=== PATIENT | male | born 1975 | race American Indian/Alaskan Native ===

== ENCOUNTER 2019-02-23 12:14 | Emergency (ER) | payer MEDICARE ==
--- NOTE | 2019-02-23 12:51 | Emergency Department Report ---
ED Altered Mental Status HPI - General Chief Complaint: Altered Mental Status Stated Complaint: AMS Time Seen by Provider: 02/23/19 12:42 Source: patient, EMS Mode of arrival: Stretcher Limitations: Altered Mental Status, Other - History of Present Illness Initial Comments: Patient is 43 years old male with history of end-stage renal disease on hemodial ysis. Patient brought to the emergency room via EMS for evaluation of altered mental status that happened during his dialysis session this morning. Dialysis centers stated that patient was difficult to arouse but by the time patient arrived to the ER patient is alert, oriented 3 in no acute distress moving all his extremities with a negative stroke screening exam. Patient closely over 120. MD Complaint: altered mental status, decreased responsiveness -: This morning Severity: moderate - Related Data Home Medications Medication Instructions Recorded Confirmed Last Taken Aspirin [Aspir-Low] 81 mg PO DAILY 01/29/19 01/29/19 01/27/19 AtorvaSTATin [Lipitor] 20 mg PO QHS 01/29/19 01/29/19 01/28/19 Carvedilol 25 mg PO BID 01/29/19 01/29/19 01/28/19 Clopidogrel Bisulfate [Plavix] 75 mg PO DAILY 01/29/19 01/29/19 01/27/19 Ergocalciferol [Vitamin D2] 1 cap PO QWEEK 01/29/19 01/29/19 1 Week Ago ~01/22/19 Famotidine [Pepcid] 10 mg PO BID 01/29/19 01/29/19 01/28/19 Gabapentin [Neurontin] 300 mg PO QHS 01/29/19 01/29/19 01/28/19 Insulin Glargine,Hum.rec.anlog 20 units SQ QHS 01/29/19 01/29/19 01/28/19 [Lantus] NIFEdipine XL [Procardia Xl] 90 mg PO DAILY 01/29/19 01/29/19 01/28/19 Sevelamer Carbonate [Renvela] 3 tab PO TIDAC 01/29/19 01/29/19 01/28/19 Allergies Allergy/AdvReac Type Severity Reaction Status Date / Time No Known Allergies Allergy Unverified 01/29/19 06:33 ED Review of Systems ROS: Stated complaint: AMS Other details as noted in HPI Comment: All other systems reviewed and negative Constitutional: denies: chills, fever Respiratory: denies: cough, shortness of breath Cardiovascular: denies: chest pain, palpitations Gastrointestinal: denies: abdominal pain, nausea, vomiting, diarrhea, constipation, hematemesis, melena, hematochezia Musculoskeletal: denies: back pain Neurological: denies: headache, weakness, numbness, paresthesias, confusion, abnormal gait ED Past Medical Hx - Past Medical History Previous Medical History?: Yes Hx Hypertension: Yes Hx Heart Attack/AMI: No Hx Diabetes: Yes Hx HIV: No Additional medical history: Legally blind - Surgical History Past Surgical History?: Yes Hx Cholecystectomy: Yes - Social History Smoking Status: Never Smoker - Medications Home Medications: Home Medications Medication Instructions Recorded Confirmed Last Taken Type Aspirin [Aspir-Low] 81 mg PO DAILY 01/29/19 01/29/19 01/27/19 History AtorvaSTATin [Lipitor] 20 mg PO QHS 01/29/19 01/29/19 01/28/19 History Carvedilol 25 mg PO BID 01/29/19 01/29/19 01/28/19 History Clopidogrel Bisulfate [Plavix] 75 mg PO DAILY 01/29/19 01/29/19 01/27/19 History Ergocalciferol [Vitamin D2] 1 cap PO QWEEK 01/29/19 01/29/19 1 Week Ago History ~01/22/19 Famotidine [Pepcid] 10 mg PO BID 01/29/19 01/29/19 01/28/19 History Gabapentin [Neurontin] 300 mg PO QHS 01/29/19 01/29/19 01/28/19 History Insulin Glargine,Hum.rec.anlog 20 units SQ QHS 01/29/19 01/29/19 01/28/19 History [Lantus] NIFEdipine XL [Procardia Xl] 90 mg PO DAILY 01/29/19 01/29/19 01/28/19 History Sevelamer Carbonate [Renvela] 3 tab PO TIDAC 01/29/19 01/29/19 01/28/19 History ED Physical Exam - General Limitations: Altered Mental Status, Other General appearance: alert, in no apparent distress - Head Head exam: Present: atraumatic, normocephalic, normal inspection - Eye Eye exam: Present: normal appearance, PERRL - ENT ENT exam: Present: normal exam, normal orophraynx, mucous membranes moist - Neck Neck exam: Present: normal inspection, full ROM. Absent: tenderness, meningismus, lymphadenopathy, thyromegaly - Respiratory Respiratory exam: Present: normal lung sounds bilaterally - Cardiovascular Cardiovascular Exam: Present: regular rate, normal rhythm, normal heart sounds - GI/Abdominal GI/Abdominal exam: Present: soft, normal bowel sounds. Absent: distended, te nderness, guarding, rebound, rigid - Extremities Exam Extremities exam: Present: normal inspection, full ROM, normal capillary refill - Back Exam Back exam: Present: normal inspection, full ROM. Absent: CVA tenderness (R), CVA tenderness (L) - Neurological Exam Neurological exam: Present: alert, oriented X3, CN II-XII intact, normal gait - Psychiatric Psychiatric exam: Present: normal mood - Skin Skin exam: Present: warm, intact, normal color - Assessment Assessment Interval: Baseline - Level of Consciousness 1a. Level of Consciousness: alert/keenly responsive - LOC Questions 1b. LOC Questions: answers both correctly - LOC Command 1c. LOC Commands: performs tasks correctly - Best Gaze 2. Best Gaze: normal - Visual 3. Visual: no visual loss - Facial Palsy 4. Facial Palsy: normal symmetrical movement - Motor Arm 5a. Motor Arm Left: no drift 5b. Motor Arm Right: no drift - Motor Leg 6a. Motor Leg Left: no drift 6b. Motor Leg Right: no drift - Limb Ataxia 7. Limb Ataxia: absent - Sensory 8. Sensory: normal - Best Language 9. Best Language: no aphasia - Dysarthria 10. Dysarthria: normal - Extinction and Inattention 11. Extinction/Inattention: no abnormality - Scoring Total Score: 0 Stroke Severity: No Stroke Symptoms ED Course Vital Signs 02/23/19 02/23/19 02/23/19 12:27 13:28 13:30 Temperature 97.7 F Pulse Rate 63 Respiratory 18 Rate Blood Pressure 143/80 162/84 O2 Sat by Pulse 100 97 97 Oximetry 02/23/19 02/23/19 14:00 14:30 Temperature Pulse Rate Respiratory Rate Blood Pressure 164/93 160/85 O2 Sat by Pulse 99 97 Oximetry - Lab Data Result diagrams: 02/23/19 12:54 02/23/19 12:54 Lab Results 02/23/19 02/23/19 02/23/19 Range/Units 12:54 12:54 12:54 WBC 10.3 (4.5-11.0) K/mm3 RBC 4.05 (3.65-5.03) M/mm3 Hgb 12.7 (11.8-15.2) gm/dl Hct 38.4 (35.5-45.6) % MCV 95 H (84-94) fl MCH 31 (28-32) pg MCHC 33 (32-34) % RDW 16.5 H (13.2-15.2) % Plt Count 319 (140-440) K/mm3 Lymph % (Auto) 24.2 (13.4-35.0) % [place] % (Auto) 6.9 (0.0-7.3) % Eos % (Auto) 3.6 (0.0-4.3) % Baso % (Auto) 0.7 (0.0-1.8) % Lymph # 2.5 (1.2-5.4) K/mm3 [place] # 0.7 (0.0-0.8) K/mm3 Eos # 0.4 (0.0-0.4) K/mm3 Baso # 0.1 (0.0-0.1) K/mm3 Seg Neutrophils % 64.6 (40.0-70.0) % Seg Neutrophils # 6.7 (1.8-7.7) K/mm3 Sodium 137 (137-145) mmol/L Potassium 4.9 (3.6-5.0) mmol/L Chloride 95.8 L (98-107) mmol/L Carbon Dioxide 30 (22-30) mmol/L Anion Gap 16 mmol/L BUN 58 H (9-20) mg/dL Creatinine 6.4 H (0.8-1.5) mg/dL Estimated GFR 11 ml/min BUN/Creatinine Ratio 9 % Glucose 165 H (75-100) mg/dL Calcium 9.4 (8.4-10.2) mg/dL Total Bilirubin 0.30 (0.1-1.2) mg/dL Direct Bilirubin < 0.2 (0-0.2) mg/dL Indirect Bilirubin 0.1 mg/dL AST 19 (5-40) units/L ALT 19 (7-56) units/L Alkaline Phosphatase 208 H (35-129) units/L Ammonia < 10.0 L (25-60) umol/L Total Protein 8.2 (6.3-8.2) g/dL Albumin 3.0 L (3.9-5) g/dL Albumin/Globulin Ratio 0.6 % - Radiology Data Radiology results: report reviewed Chest x-ray is unremarkable. CT brain is negative for acute finding. - Medical Decision Making Patient is 43 years old male with history of end-stage renal disease on hemodialysis. Patient brought to the emergency room via EMS for evaluation of altered mental status that happened during his dialysis session this morning. Dialysis centers stated that patient was difficult to arouse but by the time patient arrived to the ER patient is alert, oriented 3 in no acute distress moving all his extremities with a negative stroke screening exam. Patient closely over 120. Patient remained stable in the ER. Patient is alert, oriented 3 in no acute distress chatting with his family on the phone. Labs reveal a days and unremarkable. Patient discharged home in a stable clinical condition. Critical care attestation.: If time is entered above; I have spent that time in minutes in the direct care of this critically ill patient, excluding procedure time. ED Disposition Clinical Impression: Altered mental status, End-stage renal disease on hemodialysis Disposition: DC- TO HOME OR SELFCARE Is pt being admited?: No Condition: Stable Instructions: Altered Mental Status (ED) Referrals: IGLESIA MALAVE MD [Primary Care Provider] - 3-5 Days
[2019-02-23 13:08] LABS: Basophils # (Auto) 0.1 K/mm3 (0.0-0.1); Basophils % (Auto) 0.7 % (0.0-1.8); Eosinophils # (Auto) 0.4 K/mm3 (0.0-0.4); Eosinophils % (Auto) 3.6 % (0.0-4.3); Hematocrit 38.4 % (35.5-45.6); Hemoglobin 12.7 gm/dl (11.8-15.2); Lymphocytes # (Auto) 2.5 K/mm3 (1.2-5.4); Lymphocytes % (Auto) 24.2 % (13.4-35.0); Mean Corpuscular HGB Conc 33 % (32-34); Mean Corpuscular Volume 95 fl (84-94); Monocytes # (Auto) 0.7 K/mm3 (0.0-0.8); Monocytes % (Auto) 6.9 % (0.0-7.3); Platelet Count 319 K/mm3 (140-440); Red Blood Count 4.05 M/mm3 (3.65-5.03); Red Cell Distribution Width 16.5 % (13.2-15.2)
[2019-02-23 13:29] LABS: Alanine Aminotransferase 19 units/L (7-56); BUN/Creatinine Ratio 9; Blood Urea Nitrogen 58 mg/dL (9-20); Calcium 9.4 mg/dL (8.4-10.2); Hemolysis Index 14
[2019-02-23 13:34] LABS: Bilirubin,Direct < 0.2 mg/dL (0-0.2)
--- NOTE | 2019-02-23 13:34 | XRay Report ---
AP CHEST : 02/23/19 12:55 CLINICAL: Altered mental status. COMPARISON:None FINDINGS: Mild cardiomegaly with a left ventricular contour.Normal pulmonary vasculature. The lungs are normally expanded and clear. The bones and soft tissues are unremarkable.No tubes or lines. IMPRESSION: Mild cardiomegaly but no CHF.
--- NOTE | 2019-02-23 14:23 | Cat Scan Report ---
PROCEDURE: CT HEAD/BRAIN WO CON TECHNIQUE: CT examination of the head without IV contrast HISTORY: AMS COMPARISONS: 01/12/2019 FINDINGS: Nonspecific density in both ocular globes, symmetric bilaterally and unchanged from comparison. Corre late clinically. Cerebrovascular atherosclerotic calcification is present in the skull base arteries. No acute air-fluid level visualized in the included air-filled sinuses. Bone windows demonstrate no acute fracture. The brain is without mass, mass effect, hemorrhage, or acute infarct. There is no extra-axial intracranial bleed, brain bleed, or midline shift. The ventricles and sulci are age-appropriate. IMPRESSION: No acute CVA, intracranial bleed, or brain mass Nonspecific diffuse homogeneous density in both ocular globes is bilaterally symmetric and unchanged from comparison exam This document is electronically signed by Adan Short MD., Feb 23 2019 02:21:17 PM ET
[2019-02-23 18:57] VITALS: BP 177/89
== END 2019-02-23 18:59 | disposition home or self-care (01) ==
LOC: ED 12:14
DX: R41.82 Altered mental status, unspecified (principal); I12.0 Hypertensive chronic kidney disease with stage 5 chronic kidney disease or end stage renal disease; N18.6 End stage renal disease; E11.22 Type 2 diabetes mellitus with diabetic chronic kidney disease; Z99.2 Dependence on renal dialysis; Z90.49 Acquired absence of other specified parts of digestive tract; Z79.82 Long term (current) use of aspirin; Z79.4 Long term (current) use of insulin
CPT/HCPCS: 36415; 70450; 71045; 80048; 80076; 82140; 85025; 99285

== ENCOUNTER 2019-09-02 12:27 | Inpatient (IN) | payer MEDICARE ==
[2019-09-02] MEDS ORDERED: ACETAMINOPHEN 325 MG TAB PO ONE (13:07)
--- NOTE | 2019-09-02 13:15 | Emergency Department Report ---
ED Syncope HPI - General Chief Complaint: Neuro Symptoms/Deficit Stated Complaint: BLOOD PRESSURE DROP Time Seen by Provider: 09/02/19 13:04 Source: patient, EMS Exam Limitations: no limitations - History of Present Illness Initial Comments: Mr. Eduardo is a 44-year-old male with history of diabetes mellitus, blindness, end-stage renal disease, hypertension, peripheral vascular disease who presents with syncopal episode and hypotension while on hemodialysis. Mr. Eduardo had a presyncopal episode lasting a few seconds. Blood pressure systolic reported to be in the 60s per dialysis staff. Upon arrival patient had normal blood pressure according to EMS. Mr. Yaneses that he feels "drunk". For the past week he has had headache mild in severity. Global. Dull. H denies fever. Denies vomiting. He denies chest pain. Denies abdominal pain. Since December she has been a resident of [facility]. He receives dialysis at [facility]. 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 Timing/Prior Episodes: no prior history Precipitating Factors: Positive: other (possible hypotension while on dialysis) Context: sitting Loss of Consciousness: brief (seconds) Current Symptoms: back to normal - Related Data Allergies/Adverse Reactions: Allergies No Known Allergies Allergy (Unverified 01/29/19 06:33) Home Medications: Ambulatory Orders Aspirin [Aspir-Low] 81 mg PO DAILY 01/29/19 AtorvaSTATin [Lipitor] 20 mg PO QHS 01/29/19 Clopidogrel Bisulfate [Plavix] 75 mg PO DAILY 01/29/19 Ergocalciferol [Vitamin D2] 1 cap PO QWEEK 01/29/19 Famotidine [Pepcid] 10 mg PO BID 01/29/19 Gabapentin 300 mg PO QHS 01/29/19 Insulin Glargine,Hum.rec.anlog [Lantus] 20 units SQ QHS 01/29/19 NIFEdipine XL [Procardia Xl] 90 mg PO DAILY 01/29/19 Sevelamer Carbonate [Renvela] 3 tab PO TIDAC 01/29/19 carvediloL [Carvedilol] 25 mg PO BID 01/29/19 ED Review of Systems ROS: Stated complaint: BLOOD PRESSURE DROP Other details as noted in HPI Comment: All other systems reviewed and negative Constitutional: denies: fever, malaise Cardiovascular: denies: chest pain, palpitations Neurological: headache ED Past Medical Hx - Past Medical History Previous Medical History?: Yes Hx Hypertension: Yes Hx Heart Attack/AMI: No Hx Diabetes: Yes Hx HIV: No Additional medical history: Legally blind - Surgical History Hx Cholecystectomy: Yes - Social History Smoking Status: Never Smoker - Medications Home Medications: Home Medications Medication Instructions Recorded Confirmed Last Taken Type Aspirin [Aspir-Low] 81 mg PO DAILY 01/29/19 01/29/19 01/27/19 History AtorvaSTATin [Lipitor] 20 mg PO QHS 01/29/19 01/29/19 01/28/19 History Clopidogrel Bisulfate [Plavix] 75 mg PO DAILY 01/29/19 01/29/19 01/27/19 History Ergocalciferol [Vitamin D2] 1 cap PO QWEEK 01/29/19 01/29/19 1 Week Ago History ~01/22/19 Famotidine [Pepcid] 10 mg PO BID 01/29/19 01/29/19 01/28/19 History Gabapentin 300 mg PO QHS 01/29/19 01/29/19 01/28/19 History Insulin Glargine,Hum.rec.anlog 20 units SQ QHS 01/29/19 01/29/19 01/28/19 History [Lantus] NIFEdipine XL [Procardia Xl] 90 mg PO DAILY 01/29/19 01/29/19 01/28/19 History Sevelamer Carbonate [Renvela] 3 tab PO TIDAC 01/29/19 01/29/19 01/28/19 History carvediloL [Carvedilol] 25 mg PO BID 01/29/19 01/29/19 01/28/19 History ED Physical Exam - General Limitations: Physical Limitation General appearance: alert, in no apparent distress, other (appears chronically ill) - Head Head exam: Present: atraumatic, normocephalic, other (thin hair light colored frail) - Eye Eye exam: Present: other (legally blind, eyelids are closed) - ENT ENT exam: Present: mucous membranes moist - Neck Neck exam: Present: normal inspection, full ROM - Respiratory Respiratory exam: Present: normal lung sounds bilaterally. Absent: respiratory distress, wheezes, rales - Cardiovascular Cardiovascular Exam: Present: regular rate, normal rhythm, normal heart sounds. Absent: systolic murmur, diastolic murmur, rubs, gallop - GI/Abdominal GI/Abdominal exam: Present: soft, distended. Absent: tenderness, guarding, rebound - Extremities Exam Extremities exam: Present: other (edematous severely ulcerated with correa crusty discharge, lichenified skin) - Back Exam Back exam: Present: normal inspection - Neurological Exam Neurological exam: Present: alert, oriented X3 - Psychiatric Psychiatric exam: Present: normal affect, normal mood - Skin Skin exam: Present: warm, normal color. Absent: rash ED Course Vital Signs 09/02/19 09/02/19 12:44 13:05 Temperature 98.9 F Pulse Rate 80 91 H Respiratory 19 15 Rate Blood Pressure 160/82 181/88 [Right] O2 Sat by Pulse 98 93 Oximetry ED Medical Decision Making - EKG Data 09/02/19 13:20 EKG obtained 1313 NSR rate 90 bpm normal axis prolonged DC prolonged QT interval no signs of ischemia no ST elevation - Medical Decision Making Mr. Eduardo presents with syncope: DDX: hypotension due to volume shift vs arrhythmia vs sepsis/infection Mr. Eduardo is stable at this time with mild headache which has been present for one week. Admitted to the hospitalist service for further treatment and evaluation Critical care attestation.: If time is entered above; I have spent that time in minutes in the direct care of this critically ill patient, excluding procedure time. ED Disposition Clinical Impression: Syncope, ESRD (end stage renal disease) on dialysis Disposition: OP ADMIT IP TO THIS HOSP Is pt being admited?: Yes Does the pt Need Aspirin: No Condition: Stable
--- NOTE | 2019-09-02 13:49 | XRay Report ---
CHEST 1 VIEW 09/02/2019 1:21 PM INDICATION / CLINICAL INFORMATION: Syncope. COMPARISON: Chest x-ray on 02/23/2019. FINDINGS: SUPPORT DEVICES: None. HEART / MEDIASTINUM: Stable borderline cardiomegaly. LUNGS / PLEURA: No significant pulmonary or pleural abnormality. No pneumothorax. ADDITIONAL FINDINGS: No significant additional findings. IMPRESSION: 1. No adverse change from prior exams. Stable borderline/mild cardiomegaly. Signer Name: Korey Sidhu MD Signed: 09/02/2019 1:45 PM Workstation Name: [id number]
[2019-09-02] MEDS ORDERED: ACETAMINOPHEN 325 MG TAB PO PRN (14:16)
[2019-09-02] MEDS ORDERED: ONDANSETRON 4 MG/2 ML INJ IV PRN (14:16)
[2019-09-02] MEDS ORDERED: ALBUTEROL 2.5 MG/3 ML NEBU IH PRN (14:16)
--- NOTE | 2019-09-02 14:16 | History and Physical Report ---
History of Present Illness Chief complaint: I felt drunk and confused History of present illness: 44 YO Male with ESRD on HD(T,R,Sa), DM, HTN, PVD, GERD, Obesity, Legally Blind presents to ED for evaluation. Pt states that he experienced acute onset of weakness, confusion, and low blood pressure while undergoing dialysis today. Pt reports losing consciousness for a a few seconds. Pt was reported to have hypotension with Systolic Blood Pressure in the 60's. EMS notified, and upon arrival the patient was found to be in distress and transferred to [facility]. Pt seen and evaluated in ED and found to have ESRD and Dialysis Disequilibrium Syndrome. Pt admitted to medical floor and placed on remote telemetry. Pt acknkowledges "feeling drunk". Pt denies trauma, fever, chills, CP, Palpitations, NVD, skin rash, productive cough, skin rash, or recent ill contacts. No prior admission for review. All listed medication reconciled at time of admission. Past History Past Medical History: other (see HPI) Past Surgical History: cholecystectomy Social history: , smoking. denies: alcohol abuse, prescription drug abuse Family history: hypertension Medications and Allergies Allergies Allergy/AdvReac Type Severity Reaction Status Date / Time No Known Allergies Allergy Unverified 01/29/19 06:33 Home Medications Medication Instructions Recorded Confirmed Last Taken Type Aspirin [Aspir-Low] 81 mg PO DAILY 01/29/19 09/02/19 01/27/19 History AtorvaSTATin [Lipitor] 20 mg PO QHS 01/29/19 09/02/19 01/28/19 History Clopidogrel Bisulfate [Plavix] 75 mg PO DAILY 01/29/19 09/02/19 01/27/19 History Ergocalciferol [Vitamin D2] 1 cap PO QWEEK 01/29/19 09/02/19 1 Week Ago History ~01/22/19 Famotidine [Pepcid] 10 mg PO BID 01/29/19 09/02/19 01/28/19 History Gabapentin 300 mg PO QHS 01/29/19 09/02/19 01/28/19 History Insulin Glargine,Hum.rec.anlog 20 units SQ QHS 01/29/19 09/02/19 01/28/19 History [Lantus] NIFEdipine XL [Procardia Xl] 90 mg PO DAILY 01/29/19 09/02/19 01/28/19 History Sevelamer Carbonate [Renvela] 3 tab PO TIDAC 01/29/19 09/02/19 01/28/19 History carvediloL [Carvedilol] 25 mg PO BID 01/29/19 09/02/19 01/28/19 History Triamcinolone Acetonide [Nasacort 10.8 ml NS QDAY PRN 09/02/19 09/02/19 Unknown History SPRAY] oxyCODONE /ACETAMINOPHEN [Percocet 1 tab PO Q6HR PRN 09/02/19 09/02/19 Unknown History 5/325] Review of Systems Constitutional: weakness, no fever, no chills, no sweats Ears, nose, mouth and throat: no ear pain, no tinnitis, no decreased hearing Cardiovascular: no chest pain, no orthopnea, no palpitations, no rapid/irregular heart beat, no syncope Respiratory: no cough, no cough with sputum, no hemoptysis, no shortness of breath Gastrointestinal: no diarrhea, no change in bowel habits, no hematemesis Genitourinary Male: no hematuria, no flank pain, no urinary frequency, no urinary hesitancy, no nocturia, no incontinence Rectal: no pain, no incontinence Musculoskeletal: no neck pain, no arm numbness/tingling, no leg numbness/tingling, no redness of joints Integumentary: no deferred, no pruritis, no sores, no acne Exam - Constitutional Vitals: Temp Pulse Resp BP Pulse Ox 98.9 F 91 H 15 181/88 93 09/02/19 13:05 09/02/19 13:05 09/02/19 13:05 09/02/19 13:05 09/02/19 13:05 General appearance: Present: mild distress - EENT Eyes: Present: PERRL ENT: hearing intact, clear oral mucosa - Neck Neck: Present: supple, normal ROM - Respiratory Respiratory effort: normal Respiratory: bilateral: CTA - Cardiovascular Heart Sounds: Present: S1 & S2. Absent: rub, click - Extremities Extremities: pulses symmetrical, No edema Peripheral Pulses: within normal limits - Abdominal General gastrointestinal: Present: soft, non-tender, non-distended, normal bowel sounds Male genitourinary: Present: normal - Integumentary Integumentary: Present: clear, warm, dry - Musculoskeletal Musculoskeletal: gait normal, strength equal bilaterally - Psychiatric Psychiatric: appropriate mood/affect, intact judgment & insight - Neurologic Neurologic: CNII-XII intact, moves all extremities Results - Labs CBC & Chem 7: 09/02/19 13:43 09/02/19 13:43 Assessment and Plan - Patient Problems (1) ESRD (end stage renal disease) Current Visit: Yes Status: Acute Plan to address problem: Nephrology consulted in ED, strict I/O, monitor uop q shift, dialysis as per renal team, (2) Syncope Current Visit: Yes Status: Acute Qualifiers: Encounter type: initial encounter Plan to address problem: CT Head, neuro check, supportive care. (3) Dialysis disequilibrium syndrome Current Visit: Yes Status: Acute Plan to address problem: supportive care, IVF resuscitation therapy as tolerated, cbc, cmp, neuro checks, seizure precautions. (4) HTN (hypertension) Current Visit: Yes Status: Acute Qualifiers: Hypertension type: essential hypertension Qualified Code(s): I10 - Essential (primary) hypertension Plan to address problem: Monitor BP q shift, resume prehospital medication. supportive care. (5) PVD (peripheral vascular disease) Current Visit: Yes Status: Acute Plan to address problem: supportive care. chronic, outpatient F/U with PCP (6) GERD (gastroesophageal reflux disease) Current Visit: Yes Status: Acute Qualifiers: Esophagitis presence: without esophagitis Qualified Code(s): K21.9 - Gastro-esophageal reflux disease without esophagitis Plan to address problem: PPI therapy, (7) DVT prophylaxis Current Visit: Yes Status: Acute Plan to address problem: SCD to BLE while in bed,
[2019-09-02 14:29] LABS: Basophils % (Auto) 0.5 % (0.0-1.8); Eosinophils # (Auto) 0.5 K/mm3 (0.0-0.4); Eosinophils % (Auto) 5.2 % (0.0-4.3); Hemoglobin 11.7 gm/dl (11.8-15.2); Lymphocytes # (Auto) 1.7 K/mm3 (1.2-5.4); Lymphocytes % (Auto) 19.1 % (13.4-35.0); Mean Corpuscular HGB Conc 34 % (32-34); Mean Corpuscular Volume 94 fl (84-94); Monocytes # (Auto) 0.7 K/mm3 (0.0-0.8); Monocytes % (Auto) 7.9 % (0.0-7.3); Platelet Count 232 K/mm3 (140-440); Red Blood Count 3.71 M/mm3 (3.65-5.03); Red Cell Distribution Width 16.1 % (13.2-15.2)
[2019-09-02 14:52] LABS: BUN/Creatinine Ratio 7; Blood Urea Nitrogen 46 mg/dL (9-20); Calcium 9.3 mg/dL (8.4-10.2); Hemolysis Index 26
[2019-09-02 15:11] LABS: Alanine Aminotransferase < 5 units/L (7-56)
[2019-09-02 15:18] LABS: Chol/HDL Ratio 2.66 %; HDL Cholesterol 30 mg/dL (40-59); LDL Cholesterol,Direct TNR mg/dL (50-130)
[2019-09-02] MEDS ORDERED: hydrALAZINE 20 MG/1 ML INJ IV ONE (16:04)
[2019-09-02] MEDS ORDERED: hydrALAZINE 20 MG/1 ML INJ ONE (16:05)
--- NOTE | 2019-09-02 16:26 | Cat Scan Report ---
CT HEAD WITHOUT CONTRAST INDICATION / CLINICAL INFORMATION: Syncope. TECHNIQUE: All CT scans at this location are performed using CT dose reduction for ALARA by means of automated e xposure control. COMPARISON: CT dated 02/23/19 FINDINGS: HEMORRHAGE: None. EXTRA-AXIAL SPACES: Normal in size and morphology for the patient's age. VENTRICULAR SYSTEM: Mildly prominent but unchanged. CEREBRAL PARENCHYMA: Periventricular white matter hypodensities likely representing microangiopathy. No change. No acute territorial infarct. MIDLINE SHIFT OR HERNIATION: None. CEREBELLUM / BRAINSTEM: No significant abnormality. ORBITS: Hyperdense material within both globes is unchanged. SOFT TISSUES of HEAD: No significant abnormality. CALVARIUM: No significant abnormality. PARANASAL SINUSES / MASTOID AIR CELLS: Normal as visualized. ADDITIONAL FINDINGS: None. IMPRESSION: 1. No acute intracranial abnormality. No significant change. Signer Name: Braulio Villa MD Signed: 09/02/2019 4:21 PM Workstation Name: [id number]
[2019-09-02] MEDS ORDERED: TRIAMCINOLONE ACETONIDE NS PRN (17:03)
[2019-09-02] MEDS ORDERED: FLUTICASONE PROPIONATE NASAL SPRAY 16 GM NS PRN (17:10)
[2019-09-02] MEDS: SEVELAMER CARBONATE 800 MG TAB PO SCH (19:09)
[2019-09-02] MEDS: FAMOTIDINE 10 MG TAB PO SCH (22:34)
[2019-09-02] MEDS: GABAPENTIN 300 MG CAP PO SCH (22:34)
[2019-09-02] MEDS: carvediloL 25 MG TAB PO SCH (22:34)
[2019-09-02] MEDS: oxyCODONE /ACETAMINOPHEN 5-325MG TAB PO PRN (22:40)
[2019-09-03] MEDS ORDERED: hydrALAZINE 20 MG/1 ML INJ IV PRN (05:40)
[2019-09-03] MEDS: SEVELAMER CARBONATE 800 MG TAB PO SCH ×3 (08:47→17:24)
[2019-09-03 10:25] LABS: Creatine Kinase MB 8.3 ng/mL (0.0-4.0)
[2019-09-03] MEDS: NIFEdipine XL 90 MG TAB PO SCH (11:29)
[2019-09-03] MEDS: CLOPIDOGREL 75 MG TAB PO SCH (11:29)
[2019-09-03] MEDS: carvediloL 25 MG TAB PO SCH ×2 (11:30→22:53)
[2019-09-03] MEDS: ASPIRIN EC 81 MG TAB PO SCH (11:30)
[2019-09-03] MEDS: FAMOTIDINE 10 MG TAB PO SCH ×2 (11:34→22:52)
[2019-09-03] MEDS: oxyCODONE /ACETAMINOPHEN 5-325MG TAB PO PRN (13:09)
--- NOTE | 2019-09-03 15:07 | Consultation ---
History of Present Illness Consult date: 09/03/19 Requesting physician: AYDEE MENSAH Consult reason: elevated troponin, syncope History of present illness: The pt is a 44YO male resident of [facility] with a past medical history of ESRD on HD (//Fri), HTN, HLP, DM, blindness, PVD. He is previously unknown to our practice. He presented with c/o hypotension and syncopal episode noted during dialysis yesterday. He states that at that initiation of dialysis yesterday, he was noted to have elevated BPs. Several hours after dialysis, his BPs were noted to be trending downwards and he developed hypotension. He started to feel lightheadedness and then lost consciousness. He was unconscious for several seconds and EMS was called. Blood pressure systolic reported to be in the 60s per dialysis staff. Upon arrival patient had normal blood pressure according to EMS. Pt reports a similar episode last week during dialysis (he does not recall which day). He denies any occurrence of chest pain, sob, palpitations, n/v, diaphoresis. Pt denies any known prior cardiac issues. Past History Past Medical History: diabetes, hypertension, hyperlipidemia, PVD, other (blindness) Past Surgical History: cholecystectomy Social history: , smoking. denies: alcohol abuse, prescription drug abuse Family history: hypertension Medications and Allergies Allergies Allergy/AdvReac Type Severity Reaction Status Date / Time No Known Allergies Allergy Unverified 01/29/19 06:33 Home Medications Medication Instructions Recorded Confirmed Last Taken Type Aspirin [Aspir-Low] 81 mg PO DAILY 01/29/19 09/02/19 01/27/19 History AtorvaSTATin [Lipitor] 20 mg PO QHS 01/29/19 09/02/19 01/28/19 History Clopidogrel Bisulfate [Plavix] 75 mg PO DAILY 01/29/19 09/02/19 01/27/19 History Ergocalciferol [Vitamin D2] 1 cap PO QWEEK 01/29/19 09/02/19 1 Week Ago History ~01/22/19 Famotidine [Pepcid] 10 mg PO BID 01/29/19 09/02/19 01/28/19 History Gabapentin 300 mg PO QHS 01/29/19 09/02/19 01/28/19 History Insulin Glargine,Hum.rec.anlog 20 units SQ QHS 01/29/19 09/02/19 01/28/19 History [Lantus] NIFEdipine XL [Procardia Xl] 90 mg PO DAILY 01/29/19 09/02/19 01/28/19 History Sevelamer Carbonate [Renvela] 3 tab PO TIDAC 01/29/19 09/02/19 01/28/19 History carvediloL [Carvedilol] 25 mg PO BID 01/29/19 09/02/19 01/28/19 History Triamcinolone Acetonide [Nasacort 10.8 ml NS QDAY PRN 09/02/19 09/02/19 Unknown History SPRAY] oxyCODONE /ACETAMINOPHEN [Percocet 1 tab PO Q6HR PRN 09/02/19 09/02/19 Unknown History 5/325] Active Meds: Active Medications Acetaminophen (Tylenol) 650 mg PO Q4H PRN PRN Reason: Pain MILD(1-3)/Fever >100.5/BAKER Albuterol (Proventil) 2.5 mg IH Q4HRT PRN PRN Reason: Shortness Of Breath Aspirin (Halfprin Ec) 81 mg PO DAILY [facility] Last Admin: 09/03/19 11:30 Dose: 81 mg Documented by: Atorvastatin Calcium (Lipitor) 20 mg PO QHS [facility] Last Admin: 09/02/19 22:34 Dose: 20 mg Documented by: Carvedilol (Coreg) 25 mg PO BID [facility] Last Admin: 09/03/19 11:30 Dose: 25 mg Documented by: Clopidogrel Bisulfate (Plavix) 75 mg PO DAILY [facility] Last Admin: 09/03/19 11:29 Dose: 75 mg Documented by: Ergocalciferol (Vitamin D2) 50,000 unit PO Th [facility] Famotidine (Pepcid) 10 mg PO BID [facility] Last Admin: 09/03/19 11:34 Dose: 10 mg Documented by: Fluticasone Propionate (Flonase) 100 mcg NS QDAY PRN PRN Reason: Congestion Gabapentin (Gabapentin) 300 mg PO QHS [facility] Last Admin: 09/02/19 22:34 Dose: 300 mg Documented by: Hydralazine HCl (Apresoline) 10 mg IV Q4HR PRN PRN Reason: Blood Pressure Nifedipine (Procardia Xl) 90 mg PO DAILY [facility] Last Admin: 11/22/19 11:29 Dose: 90 mg Documented by: Ondansetron HCl (Zofran) 4 mg IV Q8H PRN PRN Reason: Nausea And Vomiting Oxycodone/Acetaminophen (Percocet 5/325) 1 tab PO Q6HR PRN PRN Reason: PAIN Last Admin: 09/03/19 13:09 Dose: 1 tab Documented by: Sevelamer Carbonate (Renvela) 2,400 mg PO TIDAC [facility] Last Admin: 09/03/19 13:09 Dose: 2,400 mg Documented by: Sodium Chloride (Sodium Chloride Flush Syringe 10 Ml) 10 ml IV BID [facility] Last Admin: 09/03/19 11:35 Dose: 10 ml Documented by: Sodium Chloride (Sodium Chloride Flush Syringe 10 Ml) 10 ml IV PRN PRN PRN Reason: LINE FLUSH Review of Systems Constitutional: no weight loss, no weight gain, no fever, no chills, no sweats Ears, nose, mouth and throat: no ear pain, no nose pain, no sinus pressure, no sinus pain Cardiovascular: syncope, lightheadedness, high blood pressure, leg edema (chronic), no chest pain, no orthopnea, no palpitations, no rapid/irregular hea rt beat, no edema, no shortness of breath, no dyspnea on exertion, no decreased exercise tolerance Respiratory: no cough, no shortness of breath, no dyspnea on exertion, no co ngestion, no wheezing, no pain on inspiration Gastrointestinal: no abdominal pain, no nausea, no vomiting, no diarrhea, no constipation, no change in bowel habits Genitourinary Male: no dysuria, no hematuria, no flank pain, no discharge, no urinary frequency, no urinary hesitancy Musculoskeletal: no neck stiffness, no neck pain, no shooting arm pain, no arm numbness/tingling, no low back pain, no shooting leg pain Integumentary: no rash, no pruritis, no redness, no sores, no wounds Neurological: syncope, no head injury, no paralysis, no weakness, no parathesias, no tingling, no seizures Psychiatric: no anxiety Endocrine: no cold intolerance, no heat intolerance Hematologic/Lymphatic: no easy bruising, no easy bleeding Allergic/Immunologic: no urticaria, no wheezing Physical Examination Vital Signs Pulse Resp BP Pulse Ox 80 19 160/82 98 09/02/19 12:44 09/02/19 12:44 09/02/19 12:44 09/02/19 12:44 General appearance: no acute distress HEENT: Positive: PERRL, Normocephaly, Mucus Membranes Moist Neck: Positive: neck supple, trachea midline Cardiac: Positive: Reg Rate and Rhythm, S1/S2, Systolic Murmur Lungs: Positive: clear to auscultation Neuro: Positive: Grossly Intact Abdomen: Negative: Tender Skin: Negative: Rash Musculoskeletal: No Pain Extremities: Present: +2 Edema (BLE with chronic BLE skin changes noted) Results 09/02/19 13:43 09/02/19 13:43 Cardiac Enzymes 09/02/19 09/03/19 Range/Units 13:43 08:46 AST < 5 L (5-40) units/L CK-MB (CK-2) 8.3 H (0.0-4.0) ng/mL Lipids 09/02/19 Range/Units 13:43 Triglycerides 453 H (2-149) mg/dL Cholesterol 80 (50-199) mg/dL HDL Cholesterol 30 L (40-59) mg/dL Cholesterol/HDL Ratio 2.66 % Comprehensive Metabolic Panel 09/02/19 Range/Units 13:43 Sodium 141 (137-145) mmol/L Potassium 5.0 (3.6-5.0) mmol/L Chloride 96.2 L (98-107) mmol/L Carbon Dioxide 27 (22-30) mmol/L BUN 46 H (9-20) mg/dL Creatinine 6.3 H (0.8-1.5) mg/dL Glucose 215 H (75-100) mg/dL Calcium 9.3 (8.4-10.2) mg/dL AST < 5 L (5-40) units/L ALT < 5 L (7-56) units/L Alkaline Phosphatase 181 H (35-129) units/L Total Protein 9.3 H (6.3-8.2) g/dL Albumin 3.0 L (3.9-5) g/dL - Imaging and Cardiology Echo: pending EKG: report reviewed, image reviewed EKG interpretations - Telemetry EKG Rhythm: Sinus Rhythm - EKG Sinus rhythms and dysrhythmias: sinus rhythm Assessment and Plan CE elevation appears c/w NSTEMI type II. ECG with no acute ischemic changes, pt denies any occurrence of chest pain. Cont to trend Rubi and f/u ECG in AM. Optimize anti-hypertensive regimen. Obtain echo. Plan for lexiscan MPI stress test in AM. NPO after MN. The patient has been seen in conjunction with Dr. Naqvi who agrees with the assessment and plan of care. - Patient Problems (1) Syncope Current Visit: Yes Status: Acute Qualifiers: Encounter type: initial encounter (2) NSTEMI (non-ST elevated myocardial infarction) Current Visit: Yes Status: Acute Plan to address problem: suspect type II (3) HTN (hypertension) Current Visit: Yes Status: Chronic Qualifiers: Hypertension type: essential hypertension Qualified Code(s): I10 - Essential (primary) hypertension (4) Hyperlipidemia Current Visit: Yes Status: Chronic (5) Diabetes Current Visit: Yes Status: Chronic (6) ESRD (end stage renal disease) Current Visit: Yes Status: Chronic (7) PVD (peripheral vascular disease) Current Visit: Yes Status: Chronic
--- NOTE | 2019-09-03 16:18 | Consultation ---
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 He reports syncope has happened in the past as well. He reports completing only 1 hour of dialysis prior to this happening Past History Past Medical History: diabetes, hypertension, hyperlipidemia, PVD, other (blindness) Past Surgical History: cholecystectomy Social history: , smoking. denies: alcohol abuse, prescription drug abuse Family history: hypertension Medications and Allergies Allergies Allergy/AdvReac Type Severity Reaction Status Date / Time No Known Allergies Allergy Unverified 01/29/19 06:33 Home Medications Medication Instructions Recorded Confirmed Last Taken Type Aspirin [Aspir-Low] 81 mg PO DAILY 01/29/19 09/02/19 01/27/19 History AtorvaSTATin [Lipitor] 20 mg PO QHS 01/29/19 09/02/19 01/28/19 History Clopidogrel Bisulfate [Plavix] 75 mg PO DAILY 01/29/19 09/02/19 01/27/19 History Ergocalciferol [Vitamin D2] 1 cap PO QWEEK 01/29/19 09/02/19 1 Week Ago History ~01/22/19 Famotidine [Pepcid] 10 mg PO BID 01/29/19 09/02/19 01/28/19 History Gabapentin 300 mg PO QHS 01/29/19 09/02/19 01/28/19 History Insulin Glargine,Hum.rec.anlog 20 units SQ QHS 01/29/19 09/02/19 01/28/19 History [Lantus] NIFEdipine XL [Procardia Xl] 90 mg PO DAILY 01/29/19 09/02/19 01/28/19 History Sevelamer Carbonate [Renvela] 3 tab PO TIDAC 01/29/19 09/02/19 01/28/19 History carvediloL [Carvedilol] 25 mg PO BID 01/29/19 09/02/19 01/28/19 History Triamcinolone Acetonide [Nasacort 10.8 ml NS QDAY PRN 09/02/19 09/02/19 Unknown History SPRAY] oxyCODONE /ACETAMINOPHEN [Percocet 1 tab PO Q6HR PRN 09/02/19 09/02/19 Unknown History 5/325] Active Meds: Active Medications Acetaminophen (Tylenol) 650 mg PO Q4H PRN PRN Reason: Pain MILD(1-3)/Fever >100.5/BAKER Albuterol (Proventil) 2.5 mg IH Q4HRT PRN PRN Reason: Shortness Of Breath Aspirin (Halfprin Ec) 81 mg PO DAILY [facility] Last Admin: 09/03/19 11:30 Dose: 81 mg Documented by: Atorvastatin Calcium (Lipitor) 20 mg PO QHS [facility] Last Admin: 09/02/19 22:34 Dose: 20 mg Documented by: Carvedilol (Coreg) 25 mg PO BID [facility] Last Admin: 09/03/19 11:30 Dose: 25 mg Documented by: Clopidogrel Bisulfate (Plavix) 75 mg PO DAILY [facility] Last Admin: 09/03/19 11:29 Dose: 75 mg Documented by: Ergocalciferol (Vitamin D2) 50,000 unit PO Th [facility] Famotidine (Pepcid) 10 mg PO BID [facility] Last Admin: 09/03/19 11:34 Dose: 10 mg Documented by: Fluticasone Propionate (Flonase) 100 mcg NS QDAY PRN PRN Reason: Congestion Gabapentin (Gabapentin) 300 mg PO QHS [facility] Last Admin: 09/02/19 22:34 Dose: 300 mg Documented by: Hydralazine HCl (Apresoline) 10 mg IV Q4HR PRN PRN Reason: Blood Pressure Nifedipine (Procardia Xl) 90 mg PO DAILY [facility] Last Admin: 09/03/19 11:29 Dose: 90 mg Documented by: Ondansetron HCl (Zofran) 4 mg IV Q8H PRN PRN Reason: Nausea And Vomiting Oxycodone/Acetaminophen (Percocet 5/325) 1 tab PO Q6HR PRN PRN Reason: PAIN Last Admin: 09/03/19 13:09 Dose: 1 tab Documented by: Sevelamer Carbonate (Renvela) 2,400 mg PO TIDAC [facility] Last Admin: 09/03/19 13:09 Dose: 2,400 mg Documented by: Sodium Chloride (Sodium Chloride Flush Syringe 10 Ml) 10 ml IV BID [facility] Last Admin: 09/03/19 11:35 Dose: 10 ml Documented by: Sodium Chloride (Sodium Chloride Flush Syringe 10 Ml) 10 ml IV PRN PRN PRN Reason: LINE FLUSH Review of Systems Constitutional: no weight loss, no weight gain Ears, nose, mouth and throat: no deferred, no ear pain, no ear discharge Cardiovascular: syncope, high blood pressure, leg edema, no chest pain, no orthopnea Respiratory: no cough, no cough with sputum Gastrointestinal: no abdominal pain, no nausea, no vomiting Genitourinary Male: no dysuria, no hematuria Rectal: no pain, no incontinence Musculoskeletal: no neck stiffness, no neck pain Integumentary: no deferred, no rash, no pruritis Neurological: no head injury, no transient paralysis Psychiatric: no anxiety, no memory loss Endocrine: no cold intolerance, no heat intolerance Hematologic/Lymphatic: no easy bruising, no easy bleeding Exam - Vital Signs Vital signs: Vital Signs Pulse Resp BP Pulse Ox 80 19 160/82 98 09/02/19 12:44 09/02/19 12:44 09/02/19 12:44 09/02/19 12:44 - General Appearance General appearance: well-developed, well-nourished EENT: ATNC, PERRL Neck: Present: neck supple Respiratory: Clear to Ascultation Heart: regular, S1S2 Gastrointestinal: Present: normal, normoactive bowel sounds Integumentary: no rash Neurologic: alert and oriented x3, CN 3-12 intact Psychiatric: mood/affect appropriate Results - Lab Results 09/02/19 13:43 09/02/19 13:43 Most recent lab results Calcium 9.3 mg/dL (8.4-10.2) 09/02/19 13:43 - Image Kidney/bladder ultrasound: other (review chest x-ray without edema) Assessment and Plan - Patient Problems (1) Syncope Current Visit: Yes Status: Acute Qualifiers: Encounter type: initial encounter Plan to address problem: Syncope This does not appear consistent with Dialysis disequilibrium though this would occur on dialysis would be characterized more with acute confusion usually in the setting of very recent initiation of dialysis in the setting of marked azotemia which does not appear to be the case in this patient Cardiology following suggest workup for cardiac causes (2) Diabetes Current Visit: Yes Status: Chronic Qualifiers: Diabetes mellitus type: type 2 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
[2019-09-03] MEDS ORDERED: SODIUM CHLORIDE 0.9% 100 ML IV PRN (21:47)
[2019-09-03] MEDS: GABAPENTIN 300 MG CAP PO SCH (22:52)
[2019-09-04 00:08] LABS: Hepatitis C Virus Antibody Non-Reactive (NonReactive)
[2019-09-04 00:35] LABS: Hepatitis B Surface Antigen Non-Reactive (Negative)
[2019-09-04 05:35] LABS: Calcium 8.8 mg/dL (8.4-10.2)
--- NOTE | 2019-09-04 09:27 | Progress Note ---
Assessment and Plan Assessment and plan: --ESRD (end stage renal disease) Current Visit: Yes Status: Acute Nephrology consulted, strict I/O, monitor uop q shift, dialysis as per renal team, --Atypical chest pain/elevated troponin Current Visit: Yes Status: Acute probably nonspecific in the setting of ESRD However patient has multiple risk factors Cardiology evaluation -- Syncope Current Visit: Yes Status: Acute CT Head negative, neuro check, supportive care. Fall precautions -- Dialysis disequilibrium syndrome Current Visit: Yes Status: Acute supportive care, IVF resuscitation therapy as tolerated, Supportive care --HTN (hypertension) Current Visit: Yes Status: Acute Monitor BP q shift, resume prehospital medication. supportive care. -- PVD (peripheral vascular disease) Current Visit: Yes Status: Acute supportive care. chronic, outpatient F/U with PCP --GERD (gastroesophageal reflux disease) Current Visit: Yes Status: Acute PPI therapy, -- DVT prophylaxis Current Visit: Yes Status: Acute SCD to BLE while in bed, Plan of care reviewed with the patient And The family members at the bedside I also discussed with the nurse History Interval history: Patient seen and examined medical records reviewed Complaints of mild chest pain, elevated troponin, probably nonspecific In the setting of ESRD Alert awake oriented 3 Vital signs reviewed Hospitalist Physical - Constitutional Vitals: Temp Pulse Resp BP Pulse Ox 99.5 F 74 17 114/55 91 09/04/19 05:29 09/04/19 05:29 09/04/19 05:29 09/04/19 05:29 09/04/19 05:29 General appearance: Present: no acute distress, well-nourished, obese - EENT Eyes: Present: PERRL, EOM intact - Neck Neck: Present: supple, normal ROM - Respiratory Respiratory effort: normal Respiratory: bilateral: diminished, rales, negative: rhonchi, wheezing - Cardiovascular Rhythm: regular Heart Sounds: Present: S1 & S2 - Extremities Extremities: no ischemia, No edema - Abdominal General gastrointestinal: soft, non-tender, non-distended, normal bowel sounds - Integumentary Integumentary: Present: clear, warm - Psychiatric Psychiatric: appropriate mood/affect, cooperative - Neurologic Neurologic: moves all extremities Results - Labs CBC & Chem 7: 09/02/19 13:43 09/04/19 15:30 Labs: Laboratory Last Values WBC 8.8 K/mm3 (4.5-11.0) 09/02/19 13:43 RBC 3.71 M/mm3 (3.65-5.03) 09/02/19 13:43 Hgb 11.7 gm/dl (11.8-15.2) L 09/02/19 13:43 Hct 35.0 % (35.5-45.6) L 09/02/19 13:43 MCV 94 fl (84-94) 09/02/19 13:43 MCH 32 pg (28-32) 09/02/19 13:43 MCHC 34 % (32-34) 09/02/19 13:43 RDW 16.1 % (13.2-15.2) H 09/02/19 13:43 Plt Count 232 K/mm3 (140-440) 09/02/19 13:43 Lymph % (Auto) 19.1 % (13.4-35.0) 09/02/19 13:43 Bracken % (Auto) 7.9 % (0.0-7.3) H 09/02/19 13:43 Eos % (Auto) 5.2 % (0.0-4.3) H 09/02/19 13:43 Baso % (Auto) 0.5 % (0.0-1.8) 09/02/19 13:43 Lymph # 1.7 K/mm3 (1.2-5.4) 09/02/19 13:43 Bracken # 0.7 K/mm3 (0.0-0.8) 09/02/19 13:43 Eos # 0.5 K/mm3 (0.0-0.4) H 09/02/19 13:43 Baso # 0.0 K/mm3 (0.0-0.1) 09/02/19 13:43 Seg Neutrophils % 67.3 % (40.0-70.0) 09/02/19 13:43 Seg Neutrophils # 5.9 K/mm3 (1.8-7.7) 09/02/19 13:43 Sodium 139 mmol/L (137-145) 09/04/19 04:51 Potassium 6.4 mmol/L (3.6-5.0) H* D 09/04/19 04:51 Chloride 93.6 mmol/L (98-107) L 09/04/19 04:51 Carbon Dioxide 24 mmol/L (22-30) 09/04/19 04:51 Anion Gap 28 mmol/L 09/04/19 04:51 BUN 77 mg/dL (9-20) H 09/04/19 04:51 Creatinine 9.6 mg/dL (0.8-1.5) H D 09/04/19 04:51 Estimated GFR 7 ml/min 09/04/19 04:51 BUN/Creatinine Ratio 8 % 09/04/19 04:51 Glucose 121 mg/dL (75-100) H 09/04/19 04:51 Calcium 8.8 mg/dL (8.4-10.2) 09/04/19 04:51 Total Bilirubin 0.20 mg/dL (0.1-1.2) 09/02/19 13:43 AST < 5 units/L (5-40) L 09/02/19 13:43 ALT < 5 units/L (7-56) L 09/02/19 13:43 Alkaline Phosphatase 181 units/L (35-129) H 09/02/19 13:43 Total Creatine Kinase 269 units/L (55-170) H 09/03/19 08:46 CK-MB (CK-2) 8.3 ng/mL (0.0-4.0) H 09/03/19 08:46 CK-MB (CK-2) Rel Index 3.0 (0-4) 09/03/19 08:46 Troponin T 1.330 ng/mL (0.00-0.029) H* 09/04/19 04:51 Total Protein 9.3 g/dL (6.3-8.2) H 09/02/19 13:43 Albumin 3.0 g/dL (3.9-5) L 09/02/19 13:43 Albumin/Globulin Ratio 0.5 % 09/02/19 13:43 Triglycerides 453 mg/dL (2-149) H 09/02/19 13:43 Cholesterol 80 mg/dL (50-199) 09/02/19 13:43 LDL Cholesterol Direct TNR 09/02/19 13:43 HDL Cholesterol 30 mg/dL (40-59) L 09/02/19 13:43 Cholesterol/HDL Ratio 2.66 % 09/02/19 13:43 Hepatitis A IgM Ab Non-reactive (NonReactive) 09/03/19 22:59 Hep Bs Antigen Non-reactive (Negative) 09/03/19 22:59 Hep B Core IgM Ab Non-reactive (NonReactive) 09/03/19 22:59 Hepatitis C Antibody Non-reactive (NonReactive) 09/03/19 22:59 Active Medications - Current Medications Current Medications: Generic Name Dose Route Start Last Admin Trade Name Freq PRN Reason Stop Dose Admin Acetaminophen 650 mg 09/02/19 14:16 Tylenol PO Q4H PRN Pain MILD(1-3)/Fever >100.5/BAKER Albuterol 2.5 mg 09/02/19 14:16 Proventil IH Q4HRT PRN Shortness Of Breath Aspirin 81 mg 09/03/19 10:00 09/03/19 11:30 Halfprin Ec PO 81 mg DAILY [facility] Administration Atorvastatin Calcium 20 mg 09/02/19 22:00 09/03/19 22:52 Lipitor PO 20 mg QHS [facility] Administration Carvedilol 25 mg 09/02/19 22:00 09/03/19 22:53 Coreg PO 25 mg BID [facility] Administration Clopidogrel Bisulfate 75 mg 09/03/19 10:00 09/03/19 11:29 Plavix PO 75 mg DAILY [facility] Administration Ergocalciferol 50,000 unit 09/09/19 10:00 Vitamin D2 PO Th [facility] Famotidine 10 mg 09/02/19 22:00 09/03/19 22:52 Pepcid PO 10 mg BID [facility] Administration Fluticasone Propionate 100 mcg 09/02/19 17:10 Flonase NS QDAY PRN Congestion Gabapentin 300 mg 09/02/19 22:00 09/03/19 22:52 Gabapentin PO 300 mg QHS [facility] Administration Sodium Chloride 100 mls @ 999 mls/hr 09/03/19 21:47 Nacl 0.9% IV [place] PRN Hypotension Calcium Gluconate 1,000 mg/ 110 mls @ 660 mls/hr 09/04/19 09:24 Sodium Chloride IV 09/04/19 09:33 ONCE ONE Nifedipine 90 mg 09/03/19 10:00 09/03/19 11:29 Procardia Xl PO 90 mg DAILY [facility] Administration Ondansetron HCl 4 mg 09/02/19 14:16 Zofran IV Q8H PRN Nausea And Vomiting Oxycodone/Acetaminophen 1 tab 09/02/19 17:03 09/03/19 13:09 Percocet 5/325 PO 1 tab Q6HR PRN Administration PAIN Sevelamer Carbonate 2,400 mg 09/02/19 16:30 09/03/19 17:24 Renvela PO 2,400 mg TIDAC [facility] Administration Sodium Chloride 10 ml 09/02/19 22:00 09/03/19 22:53 Sodium Chloride Flush Syringe 10 Ml IV 10 ml BID [facility] Administration Sodium Chloride 10 ml 09/02/19 14:16 Sodium Chloride Flush Syringe 10 Ml IV PRN PRN LINE FLUSH Sodium Polystyrene Sulfonate 30 gm 09/04/19 09:24 Kionex PO 09/04/19 09:25 ONCE ONE
--- NOTE | 2019-09-04 09:43 | Progress Note ---
Assessment and Plan Assessment and plan: --Hyperkalemia: Current Visit: Yes Status: Acute . Calcium gluconate, Kayexalate Follow potassium levels, HD per schedule --ESRD (end stage renal disease) Current Visit: Yes Status: Acute Nephrology consulted, strict I/O, monitor uop q shift, dialysis as per renal team, --Atypical chest pain/elevated troponin Current Visit: Yes Status: Acute probably nonspecific in the setting of ESRD However patient has multiple risk factors Cardiology evaluation OT and appreciated Cancelled stress test due to hyperkalemia -- Syncope Current Visit: Yes Status: Acute CT Head negative, neuro check, supportive care. Fall precautions -- Dialysis disequilibrium syndrome Current Visit: Yes Status: Acute supportive care, IVF resuscitation therapy as tolerated, Supportive care --HTN (hypertension) Current Visit: Yes Status: Acute Monitor BP q shift, resume prehospital medication. supportive care. -- PVD (peripheral vascular disease) Current Visit: Yes Status: Acute supportive care. chronic, outpatient F/U with PCP --GERD (gastroesophageal reflux disease) Current Visit: Yes Status: Acute PPI therapy, -- DVT prophylaxis Current Visit: Yes Status: Acute SCD to BLE while in bed, History Interval history: Seen and examined medical records reviewed Patient feels slightly better, denies chest pain or shortness of breath Vital signs reviewed Hospitalist Physical - Constitutional Vitals: Temp Pulse Resp BP Pulse Ox 99.5 F 74 17 114/55 91 09/04/19 05:29 09/04/19 05:29 09/04/19 05:29 09/04/19 05:29 09/04/19 05:29 General appearance: Present: no acute distress, well-nourished - EENT Eyes: Present: PERRL, EOM intact - Neck Neck: Present: supple, normal ROM - Respiratory Respiratory effort: normal Respiratory: bilateral: diminished, rales, negative: rhonchi, wheezing - Cardiovascular Rhythm: regular Heart Sounds: Present: S1 & S2 - Extremities Extremities: no ischemia, No edema, abnormal (chronic dryness of lower extremities) - Abdominal General gastrointestinal: soft, non-tender, non-distended, normal bowel sounds - Integumentary Integumentary: Present: clear, warm - Psychiatric Psychiatric: appropriate mood/affect, cooperative - Neurologic Neurologic: moves all extremities, other (legally blind ) Results - Labs CBC & Chem 7: 09/02/19 13:43 09/04/19 04:51 Labs: Laboratory Last Values WBC 8.8 K/mm3 (4.5-11.0) 09/02/19 13:43 RBC 3.71 M/mm3 (3.65-5.03) 09/02/19 13:43 Hgb 11.7 gm/dl (11.8-15.2) L 09/02/19 13:43 Hct 35.0 % (35.5-45.6) L 09/02/19 13:43 MCV 94 fl (84-94) 09/02/19 13:43 MCH 32 pg (28-32) 09/02/19 13:43 MCHC 34 % (32-34) 09/02/19 13:43 RDW 16.1 % (13.2-15.2) H 09/02/19 13:43 Plt Count 232 K/mm3 (140-440) 09/02/19 13:43 Lymph % (Auto) 19.1 % (13.4-35.0) 09/02/19 13:43 [place] % (Auto) 7.9 % (0.0-7.3) H 09/02/19 13:43 Eos % (Auto) 5.2 % (0.0-4.3) H 09/02/19 13:43 Baso % (Auto) 0.5 % (0.0-1.8) 09/02/19 13:43 Lymph # 1.7 K/mm3 (1.2-5.4) 09/02/19 13:43 Rhea # 0.7 K/mm3 (0.0-0.8) 09/02/19 13:43 Eos # 0.5 K/mm3 (0.0-0.4) H 09/02/19 13:43 Baso # 0.0 K/mm3 (0.0-0.1) 09/02/19 13:43 Seg Neutrophils % 67.3 % (40.0-70.0) 09/02/19 13:43 Seg Neutrophils # 5.9 K/mm3 (1.8-7.7) 09/02/19 13:43 Sodium 139 mmol/L (137-145) 09/04/19 04:51 Potassium 6.4 mmol/L (3.6-5.0) H* D 09/04/19 04:51 Chloride 93.6 mmol/L (98-107) L 09/04/19 04:51 Carbon Dioxide 24 mmol/L (22-30) 09/04/19 04:51 Anion Gap 28 mmol/L 09/04/19 04:51 BUN 77 mg/dL (9-20) H 09/04/19 04:51 Creatinine 9.6 mg/dL (0.8-1.5) H D 09/04/19 04:51 Estimated GFR 7 ml/min 09/04/19 04:51 BUN/Creatinine Ratio 8 % 09/04/19 04:51 Glucose 121 mg/dL (75-100) H 09/04/19 04:51 Calcium 8.8 mg/dL (8.4-10.2) 09/04/19 04:51 Total Bilirubin 0.20 mg/dL (0.1-1.2) 09/02/19 13:43 AST < 5 units/L (5-40) L 09/02/19 13:43 ALT < 5 units/L (7-56) L 09/02/19 13:43 Alkaline Phosphatase 181 units/L (35-129) H 09/02/19 13:43 Total Creatine Kinase 269 units/L (55-170) H 09/03/19 08:46 CK-MB (CK-2) 8.3 ng/mL (0.0-4.0) H 09/03/19 08:46 CK-MB (CK-2) Rel Index 3.0 (0-4) 09/03/19 08:46 Troponin T 1.330 ng/mL (0.00-0.029) H* 09/04/19 04:51 Total Protein 9.3 g/dL (6.3-8.2) H 09/02/19 13:43 Albumin 3.0 g/dL (3.9-5) L 09/02/19 13:43 Albumin/Globulin Ratio 0.5 % 09/02/19 13:43 Triglycerides 453 mg/dL (2-149) H 09/02/19 13:43 Cholesterol 80 mg/dL (50-199) 09/02/19 13:43 LDL Cholesterol Direct TNR 09/02/19 13:43 HDL Cholesterol 30 mg/dL (40-59) L 09/02/19 13:43 Cholesterol/HDL Ratio 2.66 % 09/02/19 13:43 Hepatitis A IgM Ab Non-reactive (NonReactive) 09/03/19 22:59 Hep Bs Antigen Non-reactive (Negative) 09/03/19 22:59 Hep B Core IgM Ab Non-reactive (NonReactive) 09/03/19 22:59 Hepatitis C Antibody Non-reactive (NonReactive) 09/03/19 22:59 Active Medications - Current Medications Current Medications: Generic Name Dose Route Start Last Admin Trade Name Freq PRN Reason Stop Dose Admin Acetaminophen 650 mg 09/02/19 14:16 Tylenol PO Q4H PRN Pain MILD(1-3)/Fever >100.5/BAKER Albuterol 2.5 mg 09/02/19 14:16 Proventil IH Q4HRT PRN Shortness Of Breath Aspirin 81 mg 09/03/19 10:00 09/03/19 11:30 Halfprin Ec PO 81 mg DAILY EPIFANIO Administration Atorvastatin Calcium 20 mg 09/02/19 22:00 09/03/19 22:52 Lipitor PO 20 mg QHS EPIFANIO Administration Carvedilol 25 mg 09/02/19 22:00 09/03/19 22:53 Coreg PO 25 mg BID EPIFANIO Administration Clopidogrel Bisulfate 75 mg 09/03/19 10:00 09/03/19 11:29 Plavix PO 75 mg DAILY EPIFANIO Administration Ergocalciferol 50,000 unit 09/09/19 10:00 Vitamin D2 PO Th EPIFANIO Famotidine 10 mg 09/02/19 22:00 09/03/19 22:52 Pepcid PO 10 mg BID EPIFANIO Administration Fluticasone Propionate 100 mcg 09/02/19 17:10 Flonase NS QDAY PRN Congestion Gabapentin 300 mg 09/02/19 22:00 09/03/19 22:52 Gabapentin PO 300 mg QHS EPIFANIO Administration Sodium Chloride 100 mls @ 999 mls/hr 09/03/19 21:47 Nacl 0.9% IV [place] PRN Hypotension Calcium Gluconate 1,000 mg/ 110 mls @ 660 mls/hr 09/04/19 10:24 Sodium Chloride IV 09/04/19 10:33 ONCE ONE Nifedipine 90 mg 09/03/19 10:00 09/03/19 11:29 Procardia Xl PO 90 mg DAILY EPIFANIO Administration Ondansetron HCl 4 mg 09/02/19 14:16 Zofran IV Q8H PRN Nausea And Vomiting Oxycodone/Acetaminophen 1 tab 09/02/19 17:03 09/03/19 13:09 Percocet 5/325 PO 1 tab Q6HR PRN Administration PAIN Sevelamer Carbonate 2,400 mg 09/02/19 16:30 09/03/19 17:24 Renvela PO 2,400 mg TIDAC EPIFANIO Administration Sodium Chloride 10 ml 09/02/19 22:00 09/03/19 22:53 Sodium Chloride Flush Syringe 10 Ml IV 10 ml BID EPIFANIO Administration Sodium Chloride 10 ml 09/02/19 14:16 Sodium Chloride Flush Syringe 10 Ml IV PRN PRN LINE FLUSH Sodium Polystyrene Sulfonate 30 gm 09/04/19 10:24 Kionex PO 09/04/19 10:25 ONCE ONE
[2019-09-04] MEDS: CLOPIDOGREL 75 MG TAB PO SCH (10:05)
[2019-09-04] MEDS: SEVELAMER CARBONATE 800 MG TAB PO SCH ×3 (10:05→18:05)
[2019-09-04] MEDS: ASPIRIN EC 81 MG TAB PO SCH (10:05)
[2019-09-04] MEDS ORDERED: CALCIUM GLUCONATE 1,000 MG in SODIUM CHLORIDE 0.9% 100 ML IV ONE (10:24)
[2019-09-04] MEDS ORDERED: SODIUM POLYSTYRENE 15 GM/60 ML ORAL LIQD PO ONE (10:24)
[2019-09-04] MEDS ORDERED: SODIUM CHLORIDE*PRIMING MACHINE ONLY FOR DIALYSIS MC ONE (11:43)
--- NOTE | 2019-09-04 12:03 | Progress Note ---
Assessment and Plan At this point, stress test will be canceled. He will be scheduled for coronary angiography on Friday morning. Ultimately, he may benefit from aortic valve replacement. 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 However, I have reviewed with his echo findings with him. He has severe aortic stenosis. Although his leaflet details could not be adequately assessed, a bicuspid valve cannot be excluded. Objective Vital Signs Temp Pulse Resp BP Pulse Ox 09/04/19 05:29 99.5 F 74 17 114/55 91 09/03/19 22:53 75 175/85 09/03/19 22:26 98.7 F 78 17 110/49 95 09/03/19 20:01 98 09/03/19 18:22 98.5 F 72 20 120/57 95 - Physical Examination General: No Apparent Distress HEENT: Positive: EOMI, Normocephaly, Mucus Membranes Moist Neck: Positive: neck supple, trachea midline Cardiac: Positive: Reg Rate and Rhythm, S1/S2, Systolic Murmur Lungs: Positive: clear to auscultation Neuro: Positive: Grossly Intact Abdomen: Positive: Soft, Active Bowel Sounds. Negative: Tender Skin: Positive: Other (scaling of both legs) Musculoskeletal: No Pain Extremities: Present: +2 Edema (both legs) - Labs and Meds Comprehensive Metabolic Panel 09/04/19 Range/Units 04:51 Sodium 139 (137-145) mmol/L Potassium 6.4 H* D (3.6-5.0) mmol/L Chloride 93.6 L (98-107) mmol/L Carbon Dioxide 24 (22-30) mmol/L BUN 77 H (9-20) mg/dL Creatinine 9.6 H D (0.8-1.5) mg/dL Glucose 121 H (75-100) mg/dL Calcium 8.8 (8.4-10.2) mg/dL - Imaging and Cardiology EKG: image reviewed Echo: image reviewed - Telemetry EKG Rhythm: Sinus Rhythm - EKG Sinus rhythms and dysrhythmias: sinus rhythm
[2019-09-04] MEDS ORDERED: SODIUM CHLORIDE 0.9% 500 ML 500 ML IV SCH (13:00)
--- NOTE | 2019-09-04 14:49 | Progress Note ---
Assessment and Plan Impression: * ESRD * hyperkalemia * Chest pain * Acc HTN * PVD Plan: * HD q TTHSAT and prn * renal diet * strict i/os * follow up daily lytes * cardiology to eval for chest pain * uf as tolerated with HD Subjective Date of service: 09/04/19 Principal diagnosis: syncope, severe , Dilated RV, NSTEMI, ESRD, HTN, DM Interval history: resting in bed today Objective - Exam Narrative Exam: General appearance: well-developed, well-nourished EENT: ATNC, PERRL Neck: Present: neck supple Respiratory: Clear to Ascultation Heart: regular, S1S2 Gastrointestinal: Present: normal, normoactive bowel sounds Integumentary: no rash Neurologic: alert and oriented x3, CN 3-12 intact Psychiatric: mood/affect appropriate - Vital Signs Vital signs: Vital Signs - 12hr 09/04/19 05:29 Temperature 99.5 F Pulse Rate 74 Respiratory 17 Rate Blood Pressure 114/55 O2 Sat by Pulse 91 Oximetry - Lab 09/02/19 13:43 09/04/19 04:51 Most recent lab results Calcium 8.8 mg/dL (8.4-10.2) 09/04/19 04:51 Medications & Allergies - Medications Allergies/Adverse Reactions: Allergies No Known Allergies Allergy (Unverified 01/29/19 06:33) Home Medications: Home Medications Medication Instructions Recorded Confirmed Last Taken Type Aspirin [Aspir-Low] 81 mg PO DAILY 01/29/19 09/02/19 01/27/19 History AtorvaSTATin [Lipitor] 20 mg PO QHS 01/29/19 09/02/19 01/28/19 History Clopidogrel Bisulfate [Plavix] 75 mg PO DAILY 01/29/19 09/02/19 01/27/19 History Ergocalciferol [Vitamin D2] 1 cap PO QWEEK 01/29/19 09/02/19 1 Week Ago History ~01/22/19 Famotidine [Pepcid] 10 mg PO BID 01/29/19 09/02/19 01/28/19 History Gabapentin 300 mg PO QHS 01/29/19 09/02/19 01/28/19 History Insulin Glargine,Hum.rec.anlog 20 units SQ QHS 01/29/19 09/02/19 01/28/19 Hist ory [Lantus] NIFEdipine XL [Procardia Xl] 90 mg PO DAILY 01/29/19 09/02/19 01/28/19 History Sevelamer Carbonate [Renvela] 3 tab PO TIDAC 01/29/19 09/02/19 01/28/19 History carvediloL [Carvedilol] 25 mg PO BID 01/29/19 09/02/19 01/28/19 History Triamcinolone Acetonide [Nasacort 10.8 ml NS QDAY PRN 09/02/19 09/02/19 Unknown History SPRAY] oxyCODONE /ACETAMINOPHEN [Percocet 1 tab PO Q6HR PRN 09/02/19 09/02/19 Unknown History 5/325] Active Medications: Generic Name Dose Route Start Last Admin Trade Name Freq PRN Reason Stop Dose Admin Acetaminophen 650 mg 09/02/19 14:16 Tylenol PO Q4H PRN Pain MILD(1-3)/Fever >100.5/BAKER Albuterol 2.5 mg 09/02/19 14:16 Proventil IH Q4HRT PRN Shortness Of Breath Aspirin 81 mg 09/03/19 10:00 09/04/19 10:05 Halfprin Ec PO 81 mg DAILY EPIFANIO Administration Atorvastatin Calcium 20 mg 09/02/19 22:00 09/03/19 22:52 Lipitor PO 20 mg QHS EPIFANIO Administration Carvedilol 25 mg 09/02/19 22:00 09/03/19 22:53 Coreg PO 25 mg BID EPIFANIO Administration Clopidogrel Bisulfate 75 mg 09/03/19 10:00 09/04/19 10:05 Plavix PO 75 mg DAILY EPIFANIO Administration Ergocalciferol 50,000 unit 09/09/19 10:00 Vitamin D2 PO Th EPIFANIO Famotidine 10 mg 09/02/19 22:00 09/03/19 22:52 Pepcid PO 10 mg BID EPIFANIO Administration Fluticasone Propionate 100 mcg 09/02/19 17:10 Flonase NS QDAY PRN Congestion Gabapentin 300 mg 09/02/19 22:00 09/03/19 22:52 Gabapentin PO 300 mg QHS EPIFANIO Administration Sodium Chloride 100 mls @ 999 mls/hr 09/03/19 21:47 Nacl 0.9% IV [place] PRN Hypotension Sodium Chloride 500 mls @ 50 mls/hr 09/04/19 13:00 Nacl 0.9% 500 Ml IV 09/04/19 22:59 DIRECT EPIFANIO Nifedipine 90 mg 09/03/19 10:00 09/03/19 11:29 Procardia Xl PO 90 mg DAILY EPIFANIO Administration Ondansetron HCl 4 mg 09/02/19 14:16 Zofran IV Q8H PRN Nausea And Vomiting Oxycodone/Acetaminophen 1 tab 09/02/19 17:03 09/03/19 13:09 Percocet 5/325 PO 1 tab Q6HR PRN Administration PAIN Sevelamer Carbonate 2,400 mg 09/02/19 16:30 09/04/19 10:05 Renvela PO 2,400 mg TIDAC EPIFANIO Administration Sodium Chloride 10 ml 09/02/19 22:00 09/04/19 10:09 Sodium Chloride Flush Syringe 10 Ml IV 10 ml BID EPIFANIO Administration Sodium Chloride 10 ml 09/02/19 14:16 Sodium Chloride Flush Syringe 10 Ml IV PRN PRN LINE FLUSH
[2019-09-04] MEDS: NIFEdipine XL 90 MG TAB PO SCH (16:17)
[2019-09-04] MEDS: carvediloL 25 MG TAB PO SCH ×2 (16:17→21:34)
[2019-09-04] MEDS: FAMOTIDINE 10 MG TAB PO SCH ×2 (16:23→21:34)
[2019-09-04] MEDS: oxyCODONE /ACETAMINOPHEN 5-325MG TAB PO PRN (21:34)
[2019-09-04] MEDS: GABAPENTIN 300 MG CAP PO SCH (21:34)
--- NOTE | 2019-09-05 09:53 | Progress Note ---
Assessment and Plan Coronary angiography in the a.m. as discussed. Ultimately, he may benefit from AVR. - Patient Problems (1) Syncope Current Visit: Yes Status: Acute (2) Severe aortic stenosis Current Visit: Yes Status: Acute (3) NSTEMI (non-ST elevated myocardial infarction) Current Visit: Yes Status: Acute (4) Right ventricular dilation Current Visit: Yes Status: Acute (5) ESRD on hemodialysis Current Visit: Yes Status: Chronic (6) HTN (hypertension) Current Visit: Yes Status: Chronic Qualifiers: Hypertension type: essential hypertension Qualified Code(s): I10 - Essential (primary) hypertension (7) Diabetes Current Visit: Yes Status: Chronic Qualifiers: Diabetes mellitus type: type 2 Diabetes mellitus supervisor intermediates insulin use: with supervisor intermediates use Diabetes mellitus complication status: with ophthalmic complications Subjective Date of service: 09/05/19 Principal diagnosis: syncope, severe , Dilated RV, NSTEMI, ESRD, HTN, DM Interval history: No complaint. This morning, he claims that he underwent coronary angiography via the right femoral artery eralier this year at [facility]. Upon reviewing his records, he underwent atherectomy for severe PAD and gangrene. Objective Vital Signs Last Vital Signs Temp 97.7 F 09/04/19 23:12 Pulse 71 09/04/19 23:12 Resp 19 09/04/19 23:12 BP 132/77 09/04/19 23:12 Pulse Ox 90 09/04/19 23:12 - Physical Examination General: No Apparent Distress HEENT: Positive: EOMI, Normocephaly, Mucus Membranes Moist Neck: Positive: neck supple, trachea midline Cardiac: Positive: Reg Rate and Rhythm, S1/S2 Lungs: Positive: clear to auscultation Neuro: Positive: Grossly Intact Abdomen: Positive: Soft, Active Bowel Sounds. Negative: Tender Skin: Positive: Other (scaling of both legs) Musculoskeletal: No Pain Extremities: Present: +2 Edema (both legs) - Labs and Meds Comprehensive Metabolic Panel 09/04/19 Range/Units 15:30 Potassium 5.1 H D (3.6-5.0) mmol/L - Imaging and Cardiology EKG: image reviewed Echo: image reviewed - EKG Sinus rhythms and dysrhythmias: sinus rhythm
[2019-09-05] MEDS: ASPIRIN EC 81 MG TAB PO SCH (10:12)
[2019-09-05] MEDS: CLOPIDOGREL 75 MG TAB PO SCH (10:12)
[2019-09-05] MEDS: carvediloL 25 MG TAB PO SCH ×2 (10:12→22:17)
[2019-09-05] MEDS: SEVELAMER CARBONATE 800 MG TAB PO SCH ×3 (10:12→18:20)
[2019-09-05] MEDS: NIFEdipine XL 90 MG TAB PO SCH (10:12)
[2019-09-05] MEDS: FAMOTIDINE 10 MG TAB PO SCH ×2 (10:12→22:17)
--- NOTE | 2019-09-05 12:08 | Progress Note ---
Assessment and Plan Assessment and plan: --Severe aortic stenosis: Cardiology following, Heart cath tomorrow May need AVR. --Atypical chest pain/elevated troponin Current Visit: Yes Status: Acute probably nonspecific in the setting of ESRD However patient has multiple risk factors Cardiology following, heart cath tomorrow --Hyperkalemia: Current Visit: Yes Status: Acute . Corrected, follow potassium levels, HD per schedule --ESRD (end stage renal disease) Current Visit: Yes Status: Acute Nephrology following, HD per schedule -- Syncope Current Visit: Yes Status: Acute CT Head negative, neuro check, supportive care. Fall precautions, fall precautions, patient legally blind -- Dialysis disequilibrium syndrome Current Visit: Yes Status: Acute supportive care, IVF resuscitation therapy as tolerated, Supportive care --HTN (hypertension) Current Visit: Yes Status: Acute Monitor BP q shift, resume prehospital medication. supportive care. -- PVD (peripheral vascular disease) Current Visit: Yes Status: Acute supportive care. chronic, outpatient F/U with PCP --GERD (gastroesophageal reflux disease) Current Visit: Yes Status: Acute PPI therapy, --Legally blind; Supportive care -- DVT prophylaxis Current Visit: Yes Status: Acute. SCD to BLE while in bed, Monitor closely and adjust management as needed Plan of care reviewed with the patient and his nurse History Interval history: Patient seen and examined medical records reviewed Patient feels better, denies chest pain or shortness of breath Vital signs noted, cardiology scheduled for heart cath tomorrow Hospitalist Physical - Constitutional Vitals: Temp Pulse Resp BP Pulse Ox 97.7 F 66 19 131/78 90 09/04/19 23:12 09/05/19 10:12 09/04/19 23:12 09/05/19 10:12 09/04/19 23:12 General appearance: Present: no acute distress, well-nourished, obese - EENT Eyes: Present: PERRL, EOM intact - Neck Neck: Present: supple, normal ROM - Respiratory Respiratory effort: normal Respiratory: bilateral: diminished, negative: rales, rhonchi, wheezing - Cardiovascular Rhythm: regular Heart Sounds: Present: S1 & S2 - Extremities Extremities: no ischemia, No edema - Abdominal General gastrointestinal: soft, non-tender, non-distended, normal bowel sounds - Integumentary Integumentary: Present: clear, warm - Psychiatric Psychiatric: appropriate mood/affect, memory intact Results - Labs CBC & Chem 7: 09/02/19 13:43 09/04/19 15:30 Labs: Laboratory Last Values WBC 8.8 K/mm3 (4.5-11.0) 09/02/19 13:43 RBC 3.71 M/mm3 (3.65-5.03) 09/02/19 13:43 Hgb 11.7 gm/dl (11.8-15.2) L 09/02/19 13:43 Hct 35.0 % (35.5-45.6) L 09/02/19 13:43 MCV 94 fl (84-94) 09/02/19 13:43 MCH 32 pg (28-32) 09/02/19 13:43 MCHC 34 % (32-34) 09/02/19 13:43 RDW 16.1 % (13.2-15.2) H 09/02/19 13:43 Plt Count 232 K/mm3 (140-440) 09/02/19 13:43 Lymph % (Auto) 19.1 % (13.4-35.0) 09/02/19 13:43 [place] % (Auto) 7.9 % (0.0-7.3) H 09/02/19 13:43 Eos % (Auto) 5.2 % (0.0-4.3) H 09/02/19 13:43 Baso % (Auto) 0.5 % (0.0-1.8) 09/02/19 13:43 Lymph # 1.7 K/mm3 (1.2-5.4) 09/02/19 13:43 [place] # 0.7 K/mm3 (0.0-0.8) 09/02/19 13:43 Eos # 0.5 K/mm3 (0.0-0.4) H 09/02/19 13:43 Baso # 0.0 K/mm3 (0.0-0.1) 09/02/19 13:43 Seg Neutrophils % 67.3 % (40.0-70.0) 09/02/19 13:43 Seg Neutrophils # 5.9 K/mm3 (1.8-7.7) 09/02/19 13:43 Sodium 139 mmol/L (137-145) 09/04/19 04:51 Potassium 5.1 mmol/L (3.6-5.0) H D 09/04/19 15:30 Chloride 93.6 mmol/L (98-107) L 09/04/19 04:51 Carbon Dioxide 24 mmol/L (22-30) 09/04/19 04:51 Anion Gap 28 mmol/L 09/04/19 04:51 BUN 77 mg/dL (9-20) H 09/04/19 04:51 Creatinine 9.6 mg/dL (0.8-1.5) H D 09/04/19 04:51 Estimated GFR 7 ml/min 09/04/19 04:51 BUN/Creatinine Ratio 8 % 09/04/19 04:51 Glucose 121 mg/dL (75-100) H 09/04/19 04:51 POC Glucose 133 (70-105) H 09/05/19 11:57 Calcium 8.8 mg/dL (8.4-10.2) 09/04/19 04:51 Total Bilirubin 0.20 mg/dL (0.1-1.2) 09/02/19 13:43 AST < 5 units/L (5-40) L 09/02/19 13:43 ALT < 5 units/L (7-56) L 09/02/19 13:43 Alkaline Phosphatase 181 units/L (35-129) H 09/02/19 13:43 Total Creatine Kinase 269 units/L (55-170) H 09/03/19 08:46 CK-MB (CK-2) 8.3 ng/mL (0.0-4.0) H 09/03/19 08:46 CK-MB (CK-2) Rel Index 3.0 (0-4) 09/03/19 08:46 Troponin T 1.330 ng/mL (0.00-0.029) H* 09/04/19 04:51 Total Protein 9.3 g/dL (6.3-8.2) H 09/02/19 13:43 Albumin 3.0 g/dL (3.9-5) L 09/02/19 13:43 Albumin/Globulin Ratio 0.5 % 09/02/19 13:43 Triglycerides 453 mg/dL (2-149) H 09/02/19 13:43 Cholesterol 80 mg/dL (50-199) 09/02/19 13:43 LDL Cholesterol Direct TNR 09/02/19 13:43 HDL Cholesterol 30 mg/dL (40-59) L 09/02/19 13:43 Cholesterol/HDL Ratio 2.66 % 09/02/19 13:43 Hepatitis A IgM Ab Non-reactive (NonReactive) 09/03/19 22:59 Hep Bs Antigen Non-reactive (Negative) 09/03/19 22:59 Hep B Core IgM Ab Non-reactive (NonReactive) 09/03/19 22:59 Hepatitis C Antibody Non-reactive (NonReactive) 09/03/19 22:59 Active Medications - Current Medications Current Medications: Generic Name Dose Route Start Last Admin Trade Name Freq PRN Reason Stop Dose Admin Acetaminophen 650 mg 09/02/19 14:16 09/04/19 16:20 Tylenol PO 650 mg Q4H PRN Administration Pain MILD(1-3)/Fever >100.5/BAKER Albuterol 2.5 mg 09/02/19 14:16 Proventil IH Q4HRT PRN Shortness Of Breath Aspirin 81 mg 09/03/19 10:00 09/05/19 10:12 Halfprin Ec PO 81 mg DAILY EPIFANIO Administration Atorvastatin Calcium 20 mg 09/02/19 22:00 09/04/19 21:34 Lipitor PO 20 mg QHS EPIFANIO Administration Carvedilol 25 mg 09/02/19 22:00 09/05/19 10:12 Coreg PO 25 mg BID EPIFANIO Administration Clopidogrel Bisulfate 75 mg 09/03/19 10:00 09/05/19 10:12 Plavix PO 75 mg DAILY EPIFANIO Administration Ergocalciferol 50,000 unit 09/09/19 10:00 Vitamin D2 PO Th EPIFANIO Famotidine 10 mg 09/02/19 22:00 09/05/19 10:12 Pepcid PO 10 mg BID EPIFANIO Administration Fluticasone Propionate 100 mcg 09/02/19 17:10 Flonase NS QDAY PRN Congestion Gabapentin 300 mg 09/02/19 22:00 09/04/19 21:34 Gabapentin PO 300 mg QHS EPIFANIO Administration Sodium Chloride 100 mls @ 999 mls/hr 09/03/19 21:47 Nacl 0.9% IV [place] PRN Hypotension Nifedipine 90 mg 09/03/19 10:00 09/05/19 10:12 Procardia Xl PO 90 mg DAILY EPIFANIO Administration Ondansetron HCl 4 mg 09/02/19 14:16 Zofran IV Q8H PRN Nausea And Vomiting Oxycodone/Acetaminophen 1 tab 09/02/19 17:03 09/04/19 21:34 Percocet 5/325 PO 1 tab Q6HR PRN Administration PAIN Sevelamer Carbonate 2,400 mg 09/02/19 16:30 09/05/19 10:12 Renvela PO 2,400 mg TIDAC EPIFANIO Administration Sodium Chloride 10 ml 09/02/19 22:00 09/05/19 10:13 Sodium Chloride Flush Syringe 10 Ml IV 10 ml BID EPIFANIO Administration Sodium Chloride 10 ml 09/02/19 14:16 Sodium Chloride Flush Syringe 10 Ml IV PRN PRN LINE FLUSH
--- NOTE | 2019-09-05 13:26 | Progress Note ---
Assessment and Plan Impression: * ESRD * hyperkalemia * Chest pain * Acc HTN * severe aortic stenosis * PVD Plan: * HD q MWF and prn * plans for hd in am, after heart cath * may need AVR per cards * follow up k level * needs int radiology to see for increase venous pressure in av access * renal diet * strict i/os * follow up daily lytes * cardiology to eval for chest pain * uf as tolerated with HD Subjective Date of service: 09/05/19 Principal diagnosis: syncope, severe , Dilated RV, NSTEMI, ESRD, HTN, DM Interval history: resting in bed today Objective - Exam Narrative Exam: General appearance: well-developed, well-nourished EENT: ATNC, PERRL Neck: Present: neck supple Respiratory: Clear to Ascultation Heart: regular, S1S2 Gastrointestinal: Present: normal, normoactive bowel sounds Integumentary: no rash Neurologic: alert and oriented x3, CN 3-12 intact Psychiatric: mood/affect appropriate - Vital Signs Vital signs: Vital Signs - 12hr 09/05/19 09/05/19 09/05/19 06:17 10:12 10:14 Temperature 98.0 F Pulse Rate 66 66 Respiratory 16 Rate Blood Pressure 114/62 131/78 131/78 O2 Sat by Pulse 97 Oximetry 09/05/19 11:48 Temperature 97.6 F Pulse Rate 64 Respiratory 18 Rate Blood Pressure 131/78 O2 Sat by Pulse 99 Oximetry - Lab 09/02/19 13:43 09/04/19 15:30 Most recent lab results Calcium 8.8 mg/dL (8.4-10.2) 09/04/19 04:51 Medications & Allergies - Medications Allergies/Adverse Reactions: Allergies No Known Allergies Allergy (Unverified 01/29/19 06:33) Home Medications: Home Medications Medication Instructions Recorded Confirmed Last Taken Type Aspirin [Aspir-Low] 81 mg PO DAILY 01/29/19 09/02/19 01/27/19 History AtorvaSTATin [Lipitor] 20 mg PO QHS 01/29/19 09/02/19 01/28/19 History Clopidogrel Bisulfate [Plavix] 75 mg PO DAILY 01/29/19 09/02/19 01/27/19 History Ergocalciferol [Vitamin D2] 1 cap PO QWEEK 01/29/19 09/02/19 1 Week Ago History ~04/12/19 Famotidine [Pepcid] 10 mg PO BID 01/29/19 09/02/19 01/28/19 History Gabapentin 300 mg PO QHS 01/29/19 09/02/19 01/28/19 History Insulin Glargine,Hum.rec.anlog 20 units SQ QHS 01/29/19 09/02/19 01/28/19 History [Lantus] NIFEdipine XL [Procardia Xl] 90 mg PO DAILY 01/29/19 09/02/19 01/28/19 History Sevelamer Carbonate [Renvela] 3 tab PO TIDAC 01/29/19 09/02/19 01/28/19 History carvediloL [Carvedilol] 25 mg PO BID 01/29/19 09/02/19 01/28/19 History Triamcinolone Acetonide [Nasacort 10.8 ml NS QDAY PRN 09/02/19 09/02/19 Unknown History SPRAY] oxyCODONE /ACETAMINOPHEN [Percocet 1 tab PO Q6HR PRN 09/02/19 09/02/19 Unknown History 5/325] Active Medications: Generic Name Dose Route Start Last Admin Trade Name Freq PRN Reason Stop Dose Admin Acetaminophen 650 mg 09/02/19 14:16 09/04/19 16:20 Tylenol PO 650 mg Q4H PRN Administration Pain MILD(1-3)/Fever >100.5/BAKER Albuterol 2.5 mg 09/02/19 14:16 Proventil IH Q4HRT PRN Shortness Of Breath Aspirin 81 mg 09/03/19 10:00 09/05/19 10:12 Halfprin Ec PO 81 mg DAILY EPIFANIO Administration Atorvastatin Calcium 20 mg 09/02/19 22:00 09/04/19 21:34 Lipitor PO 20 mg QHS EPIFANIO Administration Carvedilol 25 mg 09/02/19 22:00 09/05/19 10:12 Coreg PO 25 mg BID EPIFANIO Administration Clopidogrel Bisulfate 75 mg 09/03/19 10:00 09/05/19 10:12 Plavix PO 75 mg DAILY EPIFANIO Administration Ergocalciferol 50,000 unit 09/09/19 10:00 Vitamin D2 PO Th EPIFANIO Famotidine 10 mg 09/02/19 22:00 09/05/19 10:12 Pepcid PO 10 mg BID EPIFANIO Administration Fluticasone Propionate 100 mcg 09/02/19 17:10 Flonase NS QDAY PRN Congestion Gabapentin 300 mg 09/02/19 22:00 09/04/19 21:34 Gabapentin PO 300 mg QHS EPIFANIO Administration Sodium Chloride 100 mls @ 999 mls/hr 09/03/19 21:47 Nacl 0.9% IV [place] PRN Hypotension Nifedipine 90 mg 09/03/19 10:00 09/05/19 10:12 Procardia Xl PO 90 mg DAILY EPIFANIO Administration Ondansetron HCl 4 mg 09/02/19 14:16 Zofran IV Q8H PRN Nausea And Vomiting Oxycodone/Acetaminophen 1 tab 09/02/19 17:03 09/04/19 21:34 Percocet 5/325 PO 1 tab Q6HR PRN Administration PAIN Sevelamer Carbonate 2,400 mg 09/02/19 16:30 09/05/19 10:12 Renvela PO 2,400 mg TIDAC EPIFANIO Administration Sodium Chloride 10 ml 09/02/19 22:00 09/05/19 10:13 Sodium Chloride Flush Syringe 10 Ml IV 10 ml BID EPIFANIO Administration Sodium Chloride 10 ml 09/02/19 14:16 Sodium Chloride Flush Syringe 10 Ml IV PRN PRN LINE FLUSH
[2019-09-05] MEDS: oxyCODONE /ACETAMINOPHEN 5-325MG TAB PO PRN ×2 (17:33→22:17)
[2019-09-05] MEDS: GABAPENTIN 300 MG CAP PO SCH (22:17)
--- NOTE | 2019-09-06 10:17 | Progress Note ---
Assessment and Plan K+ noted to be 6.3 today. Electrolyte management per nephorlogy and will plan for [facility] tomorrow pending electrolytes are WNL. NPO after MN. Ultimately, he may benefit from AVR. The patient has been seen in conjunction with Dr. Guillory who agrees with the assessment and plan of care. - Patient Problems (1) Syncope Current Visit: Yes Status: Acute (2) Severe aortic stenosis Current Visit: Yes Status: Acute (3) NSTEMI (non-ST elevated myocardial infarction) Current Visit: Yes Status: Acute Plan to address problem: suspect type II (4) HTN (hypertension) Current Visit: Yes Status: Chronic Qualifiers: Hypertension type: essential hypertension Qualified Code(s): I10 - Essential (primary) hypertension (5) Hyperlipidemia Current Visit: Yes Status: Chronic (6) Diabetes Current Visit: Yes Status: Chronic Qualifiers: Diabetes mellitus type: type 2 Diabetes mellitus [facility] insulin use: with intermediate designer use Diabetes mellitus complication status: with ophthalmic complications (7) ESRD (end stage renal disease) Current Visit: Yes Status: Chronic (8) PVD (peripheral vascular disease) Current Visit: Yes Status: Chronic (9) Right ventricular dilation Current Visit: Yes Status: Chronic Subjective Date of service: 09/06/19 Principal diagnosis: syncope, severe , Dilated RV, NSTEMI, ESRD, HTN, DM Interval history: pt resting in bed, c/o headache, no current cardiac complaints. Objective Last Vital Signs Temp 97.7 F 09/06/19 06:31 Pulse 66 09/06/19 06:31 Resp 18 09/06/19 06:31 BP 120/55 09/06/19 06:31 Pulse Ox 94 09/06/19 06:31 - Physical Examination General: No Apparent Distress HEENT: Positive: EOMI, Normocephaly, Mucus Membranes Moist Neck: Positive: neck supple, trachea midline Cardiac: Positive: Reg Rate and Rhythm, S1/S2, Systolic Murmur Lungs: Positive: Decreased Breath Sounds Neuro: Positive: Grossly Intact Abdomen: Positive: Soft, Active Bowel Sounds. Negative: Tender Skin: Positive: Other (scaling of both legs) Musculoskeletal: No Pain Extremities: Present: +2 Edema (both legs) - Imaging and Cardiology EKG: image reviewed Echo: report reviewed (09/03/2019: EF 55-60%, LA mod dilated, RA mildly dilated, mild MR, mild TR, severe (mean gradient 42mmHg, COURTNEY 0.99), mild LVH, RV mod dilated, mild pulm HTN RVSP 43mmHg. ) - Telemetry EKG Rhythm: Sinus Rhythm - EKG Sinus rhythms and dysrhythmias: sinus rhythm
[2019-09-06] MEDS ORDERED: SODIUM CHLORIDE 0.9% 100 ML IV PRN ×2 (10:20→12:14)
--- NOTE | 2019-09-06 10:21 | Progress Note ---
Assessment and Plan Impression: * ESRD * hyperkalemia, now improved * Chest pain * Acc HTN * severe aortic stenosis * PVD Plan: * will plan for HD // per outpatient schedule; will check labs today to ensure no acute needs for HD today * cardiology consult appreciated, will get cardiac cath today, may need AVR * interventional radiology consult for increased venous pressure; appreciate assistance * renal diet * strict i/os * renally dose meds * UF as tolerated with HD * BP at goal on current regimen * hemoglobin at goal for ESRD, no indication for ANDREWS Subjective Date of service: 09/06/19 Principal diagnosis: syncope, severe , Dilated RV, NSTEMI, ESRD, HTN, DM Interval history: No acute events noted; patient in good spirits this AM. Denies chest pain, dyspnea, edema. No recent HD issues. Objective - Exam Narrative Exam: General appearance: well-developed, well-nourished EENT: ATNC, PERRL Neck: supple Respiratory: Clear to Auscultation Heart: regular, S1S2 Gastrointestinal: normal, normoactive bowel sounds Integumentary: no rash Neurologic: alert and oriented x3, CN 3-12 intact Psychiatric: mood/affect appropriate - Vital Signs Vital signs: Vital Signs - 12hr 09/05/19 09/06/19 23:17 06:31 Temperature 97.7 F Pulse Rate 66 Respiratory 18 18 Rate Blood Pressure 120/55 O2 Sat by Pulse 94 Oximetry - Lab 09/02/19 13:43 09/04/19 15:30 Most recent lab results Calcium 8.8 mg/dL (8.4-10.2) 09/04/19 04:51 Medications & Allergies - Medications Allergies/Adverse Reactions: Allergies No Known Allergies Allergy (Unverified 01/29/19 06:33) Home Medications: Home Medications Medication Instructions Recorded Confirmed Last Taken Type Aspirin [Aspir-Low] 81 mg PO DAILY 01/29/19 09/02/19 01/27/19 History AtorvaSTATin [Lipitor] 20 mg PO QHS 01/29/19 09/02/19 01/28/19 History Clopidogrel Bisulfate [Plavix] 75 mg PO DAILY 01/29/19 09/02/19 01/27/19 History Ergocalciferol [Vitamin D2] 1 cap PO QWEEK 01/29/19 09/02/19 1 Week Ago History ~01/22/19 Famotidine [Pepcid] 10 mg PO BID 01/29/19 09/02/19 01/28/19 History Gabapentin 300 mg PO QHS 01/29/19 09/02/19 01/28/19 History Insulin Glargine,Hum.rec.anlog 20 units SQ QHS 01/29/19 09/02/19 01/28/19 History [Lantus] NIFEdipine XL [Procardia Xl] 90 mg PO DAILY 01/29/19 09/02/19 01/28/19 History Sevelamer Carbonate [Renvela] 3 tab PO TIDAC 01/29/19 09/02/19 01/28/19 History carvediloL [Carvedilol] 25 mg PO BID 01/29/19 09/02/19 01/28/19 History Triamcinolone Acetonide [Nasacort 10.8 ml NS QDAY PRN 09/02/19 09/02/19 Unknown History SPRAY] oxyCODONE /ACETAMINOPHEN [Percocet 1 tab PO Q6HR PRN 09/02/19 09/02/19 Unknown History 5/325] Active Medications: Generic Name Dose Route Start Last Admin Trade Name Freq PRN Reason Stop Dose Admin Acetaminophen 650 mg 09/02/19 14:16 09/04/19 16:20 Tylenol PO 650 mg Q4H PRN Administration Pain MILD(1-3)/Fever >100.5/BAKER Albuterol 2.5 mg 09/02/19 14:16 Proventil IH Q4HRT PRN Shortness Of Breath Aspirin 81 mg 09/03/19 10:00 09/05/19 10:12 Halfprin Ec PO 81 mg DAILY EPIFANIO Administration Atorvastatin Calcium 20 mg 09/02/19 22:00 09/05/19 22:17 Lipitor PO 20 mg QHS EPIFANIO Administration Carvedilol 25 mg 09/02/19 22:00 09/05/19 22:17 Coreg PO 25 mg BID EPIFANIO Administration Clopidogrel Bisulfate 75 mg 09/03/19 10:00 09/05/19 10:12 Plavix PO 75 mg DAILY EPIFANIO Administration Ergocalciferol 50,000 unit 09/09/19 10:00 Vitamin D2 PO Th [facility] Famotidine 10 mg 09/02/19 22:00 09/05/19 22:17 Pepcid PO 10 mg BID EPIFANIO Administration Fluticasone Propionate 100 mcg 09/02/19 17:10 Flonase NS QDAY PRN Congestion Gabapentin 300 mg 09/02/19 22:00 09/05/19 22:17 Gabapentin PO 300 mg QHS EPIFANIO Administration Sodium Chloride 100 mls @ 999 mls/hr 09/03/19 21:47 Nacl 0.9% IV [place] PRN Hypotension Sodium Chloride 100 mls @ 999 mls/hr 09/06/19 10:20 Nacl 0.9% IV [place] PRN Hypotension Nifedipine 90 mg 09/03/19 10:00 09/05/19 10:12 Procardia Xl PO 90 mg DAILY EPIFANIO Administration Ondansetron HCl 4 mg 09/02/19 14:16 Zofran IV Q8H PRN Nausea And Vomiting Oxycodone/Acetaminophen 1 tab 09/02/19 17:03 09/05/19 22:17 Percocet 5/325 PO 1 tab Q6HR PRN Administration PAIN Sevelamer Carbonate 2,400 mg 09/02/19 16:30 09/05/19 18:20 Renvela PO 2,400 mg TIDAC EPIFANIO Administration Sodium Chloride 10 ml 09/02/19 22:00 09/05/19 22:20 Sodium Chloride Flush Syringe 10 Ml IV 10 ml BID EPIFANIO Administration Sodium Chloride 10 ml 09/02/19 14:16 Sodium Chloride Flush Syringe 10 Ml IV PRN PRN LINE FLUSH
[2019-09-06 11:05] LABS: Calcium 9.2 mg/dL (8.4-10.2)
[2019-09-06] MEDS: SEVELAMER CARBONATE 800 MG TAB PO SCH (11:28)
[2019-09-06] MEDS: carvediloL 25 MG TAB PO SCH ×2 (11:28→23:09)
[2019-09-06] MEDS: NIFEdipine XL 90 MG TAB PO SCH (11:29)
[2019-09-06] MEDS: ASPIRIN EC 81 MG TAB PO SCH (11:29)
[2019-09-06] MEDS: CLOPIDOGREL 75 MG TAB PO SCH (11:29)
[2019-09-06] MEDS: FAMOTIDINE 10 MG TAB PO SCH ×2 (11:29→23:07)
--- NOTE | 2019-09-06 12:02 | Consultation ---
History of Present Illness - Reason for Consult Consult date: 09/06/19 malfunctioning av access - History of Present Illness HPI: 44yo male with multiple medical problems including ESRD on HD via left arm AV fistula currently hospitalized for syncopal episode likely related to severe aortic stenosis. In addition, patient noted to have elevated venous pressures while on dialysis over the weekend. We have been consulted to address malfunctioning access. Patient with no current complaints. ROS: as per HPI PE: NAD, A&Ox3 Blind RRR non-labored respirations left arm av fistula with palpable thrill Plan: will plan for left arm fistulogram with possible intervention today Past History Past Medical History: diabetes, hypertension, hyperlipidemia, PVD, other (blindness) Past Surgical History: cholecystectomy Social history: , smoking. denies: alcohol abuse, prescription drug abuse Family history: hypertension Medications and Allergies Allergies Allergy/AdvReac Type Severity Reaction Status Date / Time No Known Allergies Allergy Unverified 01/29/19 06:33 Home Medications Medication Instructions Recorded Confirmed Last Taken Type Aspirin [Aspir-Low] 81 mg PO DAILY 01/29/19 09/02/19 01/27/19 History AtorvaSTATin [Lipitor] 20 mg PO QHS 01/29/19 09/02/19 01/28/19 History Clopidogrel Bisulfate [Plavix] 75 mg PO DAILY 01/29/19 09/02/19 01/27/19 History Ergocalciferol [Vitamin D2] 1 cap PO QWEEK 01/29/19 09/02/19 1 Week Ago History ~01/22/19 Famotidine [Pepcid] 10 mg PO BID 01/29/19 09/02/19 01/28/19 History Gabapentin 300 mg PO QHS 01/29/19 09/02/19 01/28/19 History Insulin Glargine,Hum.rec.anlog 20 units SQ QHS 01/29/19 09/02/19 01/28/19 History [Lantus] NIFEdipine XL [Procardia Xl] 90 mg PO DAILY 01/29/19 09/02/19 01/28/19 History Sevelamer Carbonate [Renvela] 3 tab PO TIDAC 01/29/19 09/02/19 01/28/19 History carvediloL [Carvedilol] 25 mg PO BID 01/29/19 09/02/19 01/28/19 History Triamcinolone Acetonide [Nasacort 10.8 ml NS QDAY PRN 09/02/19 09/02/19 Unknown History SPRAY] oxyCODONE /ACETAMINOPHEN [Percocet 1 tab PO Q6HR PRN 09/02/19 09/02/19 Unknown History 5/325] Active Meds: Active Medications Acetaminophen (Tylenol) 650 mg PO Q4H PRN PRN Reason: Pain MILD(1-3)/Fever >100.5/BAKER Last Admin: 09/04/19 16:20 Dose: 650 mg Documented by: Albuterol (Proventil) 2.5 mg IH Q4HRT PRN PRN Reason: Shortness Of Breath Aspirin (Halfprin Ec) 81 mg PO DAILY [facility] Last Admin: 09/06/19 11:29 Dose: Not Given Documented by: Atorvastatin Calcium (Lipitor) 20 mg PO QHS [facility] Last Admin: 09/05/19 22:17 Dose: 20 mg Documented by: Carvedilol (Coreg) 25 mg PO BID [facility] Last Admin: 09/06/19 11:28 Dose: Not Given Documented by: Clopidogrel Bisulfate (Plavix) 75 mg PO DAILY [facility] Last Admin: 09/06/19 11:29 Dose: Not Given Documented by: Ergocalciferol (Vitamin D2) 50,000 unit PO [facility] Famotidine (Pepcid) 10 mg PO BID [facility] Last Admin: 09/06/19 11:29 Dose: Not Given Documented by: Fluticasone Propionate (Flonase) 100 mcg NS QDAY PRN PRN Reason: Congestion Gabapentin (Gabapentin) 300 mg PO QHS [facility] Last Admin: 09/05/19 22:17 Dose: 300 mg Documented by: Sodium Chloride (Nacl 0.9%) 100 mls @ 999 mls/hr IV [place] PRN PRN Reason: Hypotension Nifedipine (Procardia Xl) 90 mg PO DAILY [facility] Last Admin: 09/06/19 11:29 Dose: Not Given Documented by: Ondansetron HCl (Zofran) 4 mg IV Q8H PRN PRN Reason: Nausea And Vomiting Oxycodone/Acetaminophen (Percocet 5/325) 1 tab PO Q6HR PRN PRN Reason: PAIN Last Admin: 09/05/19 22:17 Dose: 1 tab Documented by: Sevelamer Carbonate (Renvela) 2,400 mg PO TIDAC [facility] Last Admin: 09/06/19 11:28 Dose: Not Given Documented by: Sodium Chloride (Sodium Chloride Flush Syringe 10 Ml) 10 ml IV BID [facility] Last Admin: 09/05/19 22:20 Dose: 10 ml Documented by: Sodium Chloride (Sodium Chloride Flush Syringe 10 Ml) 10 ml IV PRN PRN PRN Reason: LINE FLUSH Exam - Constitutional Vitals: Temp Pulse Resp BP Pulse Ox 97.7 F 66 18 120/55 94 09/06/19 06:31 09/06/19 06:31 09/06/19 06:31 09/06/19 06:31 09/06/19 06:31 Results - Labs CBC & Chem 7: 09/02/19 13:43 09/06/19 10:09 Labs: Abnormal lab results 09/05/19 09/05/19 09/06/19 Range/Units 17:24 22:15 08:12 Sodium (137-145) mmol/L Potassium (3.6-5.0) mmol/L Chloride (98-107) mmol/L BUN (9-20) mg/dL Creatinine (0.8-1.5) mg/dL Glucose (75-100) mg/dL POC Glucose 134 H 217 H 156 H (70-105) 09/06/19 09/06/19 Range/Units 10:09 11:40 Sodium 136 L (137-145) mmol/L Potassium 6.3 H* D (3.6-5.0) mmol/L Chloride 92.0 L (98-107) mmol/L BUN 82 H (9-20) mg/dL Creatinine 9.4 H (0.8-1.5) mg/dL Glucose 152 H (75-100) mg/dL POC Glucose 142 H (70-105)
--- NOTE | 2019-09-06 13:05 | Progress Note ---
Assessment and Plan Assessment and plan: --Hyperkalemia: Current Visit: Yes Status: Acute . Stat hemodialysis , follow potassium levels, HD per schedule --ESRD (end stage renal disease) Current Visit: Yes Status: Acute Nephrology following, HD per schedule --Severe aortic stenosis: Cardiology following, Heart cath tomorrow May need AVR. --Atypical chest pain/NSTEMI Current Visit: Yes Status: Acute probably nonspecific in the setting of ESRD However patient has multiple risk factors Cardiology following, heart cath tomorrow -- Syncope Current Visit: Yes Status: Acute CT Head negative, neuro check, supportive care. Fall precautions, fall precautions, patient legally blind -- Dialysis disequilibrium syndrome Current Visit: Yes Status: Acute supportive care, IVF resuscitation therapy as tolerated, Supportive care --HTN (hypertension) Current Visit: Yes Status: Acute Monitor BP q shift, resume prehospital medication. supportive care. -- PVD (peripheral vascular disease) Current Visit: Yes Status: Acute supportive care. chronic, outpatient F/U with PCP --GERD (gastroesophageal reflux disease) Current Visit: Yes Status: Acute PPI therapy, --Legally blind; Supportive care -- DVT prophylaxis Current Visit: Yes Status: Acute. SCD to BLE while in bed, Monitor closely and adjust management as needed Plan of care reviewed with the patient and his nurse History Interval history: Patient seen and examined medical records reviewed Patient scheduled for heart cath However patient has hyperkalemia Nephrology scheduled for hemodialysis Patient is legally blind not in acute distress Hospitalist Physical - Constitutional Vitals: Temp Pulse Resp BP Pulse Ox 97.5 F L 66 20 128/78 98 09/06/19 11:45 09/06/19 11:45 09/06/19 11:45 09/06/19 11:45 09/06/19 11:45 General appearance: Present: no acute distress, well-nourished, obese - EENT Eyes: Present: PERRL, EOM intact - Neck Neck: Present: supple, normal ROM - Respiratory Respiratory effort: normal Respiratory: bilateral: diminished, negative: rales, rhonchi, wheezing - Cardiovascular Rhythm: regular Heart Sounds: Present: S1 & S2 - Extremities Extremities: no ischemia, No edema - Abdominal General gastrointestinal: soft, non-tender, non-distended, normal bowel sounds - Integumentary Integumentary: Present: clear, warm - Psychiatric Psychiatric: appropriate mood/affect, cooperative - Neurologic Neurologic: CNII-XII intact, moves all extremities Results - Labs CBC & Chem 7: 09/02/19 13:43 09/07/19 07:56 Labs: Laboratory Last Values WBC 8.8 K/mm3 (4.5-11.0) 09/02/19 13:43 RBC 3.71 M/mm3 (3.65-5.03) 09/02/19 13:43 Hgb 11.7 gm/dl (11.8-15.2) L 09/02/19 13:43 Hct 35.0 % (35.5-45.6) L 09/02/19 13:43 MCV 94 fl (84-94) 09/02/19 13:43 MCH 32 pg (28-32) 09/02/19 13:43 MCHC 34 % (32-34) 09/02/19 13:43 RDW 16.1 % (13.2-15.2) H 09/02/19 13:43 Plt Count 232 K/mm3 (140-440) 09/02/19 13:43 Lymph % (Auto) 19.1 % (13.4-35.0) 09/02/19 13:43 Dane % (Auto) 7.9 % (0.0-7.3) H 09/02/19 13:43 Eos % (Auto) 5.2 % (0.0-4.3) H 09/02/19 13:43 Baso % (Auto) 0.5 % (0.0-1.8) 09/02/19 13:43 Lymph # 1.7 K/mm3 (1.2-5.4) 09/02/19 13:43 Dane # 0.7 K/mm3 (0.0-0.8) 09/02/19 13:43 Eos # 0.5 K/mm3 (0.0-0.4) H 09/02/19 13:43 Baso # 0.0 K/mm3 (0.0-0.1) 09/02/19 13:43 Seg Neutrophils % 67.3 % (40.0-70.0) 09/02/19 13:43 Seg Neutrophils # 5.9 K/mm3 (1.8-7.7) 09/02/19 13:43 Sodium 136 mmol/L (137-145) L 09/06/19 10:09 Potassium 6.3 mmol/L (3.6-5.0) H* D 09/06/19 10:09 Chloride 92.0 mmol/L (98-107) L 09/06/19 10:09 Carbon Dioxide 22 mmol/L (22-30) 09/06/19 10:09 Anion Gap 28 mmol/L 09/06/19 10:09 BUN 82 mg/dL (9-20) H 09/06/19 10:09 Creatinine 9.4 mg/dL (0.8-1.5) H 09/06/19 10:09 Estimated GFR 7 ml/min 09/06/19 10:09 BUN/Creatinine Ratio 9 % 09/06/19 10:09 Glucose 152 mg/dL (75-100) H 09/06/19 10:09 POC Glucose 142 (70-105) H 09/06/19 11:40 Calcium 9.2 mg/dL (8.4-10.2) 09/06/19 10:09 Total Bilirubin 0.20 mg/dL (0.1-1.2) 09/02/19 13:43 AST < 5 units/L (5-40) L 09/02/19 13:43 ALT < 5 units/L (7-56) L 09/02/19 13:43 Alkaline Phosphatase 181 units/L (35-129) H 09/02/19 13:43 Total Creatine Kinase 269 units/L (55-170) H 09/03/19 08:46 CK-MB (CK-2) 8.3 ng/mL (0.0-4.0) H 09/03/19 08:46 CK-MB (CK-2) Rel Index 3.0 (0-4) 09/03/19 08:46 Troponin T 1.330 ng/mL (0.00-0.029) H* 09/04/19 04:51 Total Protein 9.3 g/dL (6.3-8.2) H 09/02/19 13:43 Albumin 3.0 g/dL (3.9-5) L 09/02/19 13:43 Albumin/Globulin Ratio 0.5 % 09/02/19 13:43 Triglycerides 453 mg/dL (2-149) H 09/02/19 13:43 Cholesterol 80 mg/dL (50-199) 09/02/19 13:43 LDL Cholesterol Direct TNR 09/02/19 13:43 HDL Cholesterol 30 mg/dL (40-59) L 09/02/19 13:43 Cholesterol/HDL Ratio 2.66 % 09/02/19 13:43 Hepatitis A IgM Ab Non-reactive (NonReactive) 09/03/19 22:59 Hep Bs Antigen Non-reactive (Negative) 09/03/19 22:59 Hep B Core IgM Ab Non-reactive (NonReactive) 09/03/19 22:59 Hepatitis C Antibody Non-reactive (NonReactive) 09/03/19 22:59 Active Medications - Current Medications Current Medications: Generic Name Dose Route Start Last Admin Trade Name Freq PRN Reason Stop Dose Admin Acetaminophen 650 mg 09/02/19 14:16 09/04/19 16:20 Tylenol PO 650 mg Q4H PRN Administration Pain MILD(1-3)/Fever >100.5/BAKER Albuterol 2.5 mg 09/02/19 14:16 Proventil IH Q4HRT PRN Shortness Of Breath Aspirin 81 mg 09/03/19 10:00 09/06/19 11:29 Halfprin Ec PO Not Given DAILY [facility] Atorvastatin Calcium 20 mg 09/02/19 22:00 09/05/19 22:17 Lipitor PO 20 mg QHS EPIFANIO Administration Carvedilol 25 mg 09/02/19 22:00 09/06/19 11:28 Coreg PO Not Given BID [facility] Clopidogrel Bisulfate 75 mg 09/03/19 10:00 09/06/19 11:29 Plavix PO Not Given DAILY [facility] Ergocalciferol 50,000 unit 09/09/19 10:00 Vitamin D2 PO Th [facility] Famotidine 10 mg 09/02/19 22:00 09/06/19 11:29 Pepcid PO Not Given BID [facility] Fluticasone Propionate 100 mcg 09/02/19 17:10 Flonase NS QDAY PRN Congestion Gabapentin 300 mg 09/02/19 22:00 09/05/19 22:17 Gabapentin PO 300 mg QHS EPIFANIO Administration Sodium Chloride 100 mls @ 999 mls/hr 09/06/19 10:20 Nacl 0.9% IV [place] PRN Hypotension Sodium Chloride 100 mls @ 999 mls/hr 09/06/19 12:14 Nacl 0.9% IV [place] PRN Hypotension Nifedipine 90 mg 09/03/19 10:00 09/06/19 11:29 Procardia Xl PO Not Given DAILY [facility] Ondansetron HCl 4 mg 09/02/19 14:16 Zofran IV Q8H PRN Nausea And Vomiting Oxycodone/Acetaminophen 1 tab 09/02/19 17:03 09/05/19 22:17 Percocet 5/325 PO 1 tab Q6HR PRN Administration PAIN Sevelamer Carbonate 2,400 mg 09/02/19 16:30 09/06/19 11:28 Renvela PO Not Given TIDAC EPIFANIO Sodium Chloride 10 ml 09/02/19 22:00 09/05/19 22:20 Sodium Chloride Flush Syringe 10 Ml IV 10 ml BID EPIFANIO Administration Sodium Chloride 10 ml 09/02/19 14:16 Sodium Chloride Flush Syringe 10 Ml IV PRN PRN LINE FLUSH
[2019-09-06] MEDS ORDERED: SODIUM CHLORIDE 0.9% 500 ML 500 ML ONE (13:17)
[2019-09-06] MEDS ORDERED: HEPARIN/NS 5000 UNIT/500ML 500 ML IR ONE (13:17)
[2019-09-06] MEDS ORDERED: MIDAZOLAM 2 MG/2 ML INJ ONE (13:17)
[2019-09-06] MEDS ORDERED: LIDOCAINE (2%) 20 MG/1 ML VIAL 20 ML MDV INFILTRATI ONE (13:17)
[2019-09-06] MEDS ORDERED: fentaNYL 100 MCG/2 ML INJ ONE (13:17)
--- NOTE | 2019-09-06 13:53 | Post Operative Note ---
Pre-op diagnosis: ESRD Post-op diagnosis: same Findings: widely patent brachio-basilic av fistula, no evidence of central stenosis, no stenosis noted at the arterial anastomosis Procedure: Left Arm Diagnostic Fistulogram Monitored Conscious Sedation Anesthesia: MAC, local Surgeon: JAHAIRA HATFIELD Estimated blood loss: none Pathology: none Condition: stable Disposition: floor
--- NOTE | 2019-09-06 14:22 | Operative Report ---
STAFF SURGEON: Dr. Ezra Gallagher. PREOPERATIVE DIAGNOSIS: End-stage renal disease. POSTOPERATIVE DIAGNOSIS: End-stage renal disease. PROCEDURE PERFORMED: 1. Left arm diagnostic fistulogram. 2. Monitored conscious sedation. COMPLICATIONS: None. ESTIMATED BLOOD LOSS: Less than 10 mL. ANESTHESIA: Local MAC. ANGIOGRAPHIC FINDINGS: The patient had a widely patent brachiobasilic AV fistula. There was no evidence of central venous stenosis and no stenosis noted at the arterial anastomosis. INDICATIONS FOR PROCEDURE: This is a 44-year-old gentleman with end-stage renal disease, on hemodialysis via left arm AV fistula, who is currently hospitalized due to a syncopal episode secondary to severe aortic stenosis, who was also noted to have elevated venous pressures at his last dialysis session and therefore vascular consultation was obtained for evaluation and possible intervention. The patient was explained all the risks, benefits and alternatives of procedure, expressed understanding and wished to proceed. DESCRIPTION OF PROCEDURE: After appropriate consent was obtained, the patient was brought back to the laborer pipelines, placed on table in supine position with left arm extended. Left arm was prepped and draped in usual sterile fashion with ChloraPrep. Appropriate timeout was performed indicating correct patient, procedure, site of procedure. I then began intervention by obtaining percutaneous access of the AV fistula using micropuncture technique. Once we obtained access, the needle was exchanged for a micropuncture sheath using Seldinger technique and a series of diagnostic imaging of the left upper extremity was performed, which demonstrated the findings noted above. With these findings, then the micropuncture sheath was removed and digital compression was held at the access site for hemostasis. Once we were satisfied with hemostasis, appropriate dressing was placed. The patient tolerated the procedure well, emerged from the conscious sedation and was sent to recovery in stable condition. JOB# [id number] QUIANA/CATALINA
[2019-09-06] MEDS: GABAPENTIN 300 MG CAP PO SCH (23:09)
[2019-09-07] MEDS: oxyCODONE /ACETAMINOPHEN 5-325MG TAB PO PRN (03:03)
[2019-09-07] MEDS: SEVELAMER CARBONATE 800 MG TAB PO SCH ×2 (08:00→14:06)
[2019-09-07] MEDS ORDERED: VERAPAMIL 5 MG/2 ML INJ ONE (08:18)
[2019-09-07] MEDS ORDERED: HEPARIN 10,000 UNITS/10 ML VIAL ONE (08:18)
[2019-09-07] MEDS ORDERED: HEPARIN/NS 5000 UNIT/500ML 1,000 ML IR ONE (08:18)
[2019-09-07] MEDS ORDERED: MIDAZOLAM 2 MG/2 ML INJ ONE (08:19)
[2019-09-07] MEDS ORDERED: LIDOCAINE (2%) 20 MG/1 ML VIAL 20 ML MDV INFILTRATI ONE (08:19)
[2019-09-07] MEDS ORDERED: NITROGLYCERIN SYRINGE 0 ML ONE (08:19)
[2019-09-07] MEDS ORDERED: fentaNYL 100 MCG/2 ML INJ ONE (08:20)
[2019-09-07] MEDS ORDERED: SODIUM CHLORIDE 0.9% 500 ML 500 ML ONE (08:20)
--- NOTE | 2019-09-07 09:47 | Progress Note ---
<CHAPIS SAHA - Last Filed: 09/07/19 09:46> Assessment and Plan Proceed with [facility] today. Await findings. Ultimately, he may benefit from AVR. The patient has been seen in conjunction with Dr. Guillory who agrees with the assessment and plan of care. 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 for [facility] today. Objective Last Vital Signs Temp 98.3 F 09/07/19 05:47 Pulse 83 09/07/19 05:47 Resp 20 09/07/19 05:47 BP 142/65 09/07/19 05:47 Pulse Ox 93 09/07/19 05:47 - Physical Examination General: No Apparent Distress HEENT: Positive: EOMI, Normocephaly, Mucus Membranes Moist Neck: Positive: neck supple, trachea midline Cardiac: Positive: Reg Rate and Rhythm, S1/S2, Systolic Murmur Lungs: Positive: Decreased Breath Sounds Neuro: Positive: Grossly Intact Abdomen: Positive: Soft, Active Bowel Sounds. Negative: Tender Skin: Positive: Other (scaling of both legs) Musculoskeletal: No Pain Extremities: Present: +2 Edema (both legs) - Labs and Meds Comprehensive Metabolic Panel 09/06/19 09/07/19 Range/Units 10:09 07:56 Sodium 136 L (137-145) mmol/L Potassium 6.3 H* D 5.6 H (3.6-5.0) mmol/L Chloride 92.0 L (98-107) mmol/L Carbon Dioxide 22 (22-30) mmol/L BUN 82 H (9-20) mg/dL Creatinine 9.4 H (0.8-1.5) mg/dL Glucose 152 H (75-100) mg/dL Calcium 9.2 (8.4-10.2) mg/dL - Imaging and Cardiology EKG: image reviewed Echo: report reviewed (09/03/2019: EF 55-60%, LA mod dilated, RA mildly dilated, mild MR, mild TR, severe (mean gradient 42mmHg, COURTNEY 0.99), mild LVH, RV mod dilated, mild pulm HTN RVSP 43mmHg. ) - EKG Sinus rhythms and dysrhythmias: sinus rhythm <MARCIO VILLARREAL - Last Filed: 09/07/19 10:22> Assessment and Plan Patient has normal coronaries with moderate severe aortic stenosis with normal LV function in view of recurrent syncope during dialysis for last one year recommend transfer to [place] for possible aortic valve replacement. Left message with brother patient will get dialysis post cath Symptomatic syncope from aortic stenosis nstemi type2 acute diastolic dsyfunction esrd on hdpvd dm chol htn hyperkalemia Objective Vital Signs Temp Pulse Resp BP Pulse Ox 09/07/19 05:47 98.3 F 83 20 142/65 93 09/07/19 03:03 18 09/06/19 23:55 98.5 F 89 20 150/72 88 09/06/19 23:09 76 138/74 09/06/19 22:00 99 09/06/19 17:50 97.5 F L 73 20 146/78 09/06/19 17:45 69 136/41 09/06/19 17:30 70 155/84 09/06/19 17:15 70 138/69 09/06/19 17:03 70 149/74 09/06/19 16:45 67 142/78 09/06/19 16:34 69 128/77 09/06/19 16:15 68 139/78 09/06/19 16:00 66 133/76 09/06/19 15:45 66 162/85 09/06/19 15:30 65 137/69 09/06/19 15:15 65 126/66 09/06/19 15:00 63 138/74 09/06/19 14:45 62 132/69 09/06/19 14:30 63 126/73 09/06/19 14:20 63 133/72 09/06/19 14:00 97.5 F L 63 20 119/57 09/06/19 11:45 97.5 F L 66 20 128/78 98 - Labs and Meds Comprehensive Metabolic Panel 09/06/19 09/07/19 Range/Units 10:09 07:56 Sodium 136 L (137-145) mmol/L Potassium 6.3 H* D 5.6 H (3.6-5.0) mmol/L Chloride 92.0 L (98-107) mmol/L Carbon Dioxide 22 (22-30) mmol/L BUN 82 H (9-20) mg/dL Creatinine 9.4 H (0.8-1.5) mg/dL Glucose 152 H (75-100) mg/dL Calcium 9.2 (8.4-10.2) mg/dL
--- NOTE | 2019-09-07 10:46 | Cardiac Catherization Report ---
LEFT HEART CATHETERIZATION CLINICAL INFORMATION: A 44-year-old -[place] gentleman who is blind; diabetes; end-stage renal disease, on hemodialysis; peripheral vascular disease; had significant syncope and echocardiogram shows normal LV function with severe aortic stenosis with a mean gradient of 40 mmHg with a velocity of 4 mm per second noted. Procedure was done with moderate sedation. Total sedation time was 21 minutes, started 9:18 a.m., finished at 9:39 a.m. Next, procedure was performed by the left common femoral artery, sterile technique, local anesthesia, 6-Irish groin sheath inserted. Left system engaged with JL4 catheter. Left main is large and patent and bifurcates. The large LAD is patent. Small diagonal is patent. Ramus is small to medium caliber and patent. Circumflex is a large dominant vessel and is patent. OM1 is medium caliber and is patent. RCA is a small, nondominant and is patent. Normal LV function. I was able to cross the aortic valve and LVEDP at 22 mmHg, LV was 179, aortic is 143/78. So the patient's [id number] gradient of 33 mmHg, mean was 35 mmHg. Catheter was pulled back. Using a Kickserv catheter to measure the aortic valve, I got the following findings. So 6-Irish all catheters were taken over the guidewire and 6-Irish groin sheath was discontinued. Manual pressure held. No hematoma, no bleeding. SUMMARY: 1. Patent coronaries, left main, LAD, circumflex dominant. Ramus patent, OM1 patent, small RCA patent with normal LV function. 2. The patient has [id number] aortic stenosis with a mean gradient of 35 mmHg with an LV of 179 mmHg, LVEDP of 22 mmHg and aortic is 143/78 mmHg. The patient will be transferred to [place] for symptomatic aortic stenosis with syncope. JOB# [id number] APURVA/CATALINA
--- NOTE | 2019-09-07 11:17 | Progress Note ---
Assessment and Plan Impression: * ESRD * hyperkalemia, 5.6 this AM * Chest pain * Acc HTN * aortic stenosis * PVD Plan: * has been receiving HD MWF here in hospital, last HD 09/06. Usually HD // outpatient, will continue MWF while here for now unless otherwise indicated for labs or volume. * cardiology consult appreciated, s/p cardiac cath today, may need AVR. If he needs to be transferred to another center, can provide HD as needed prior to transfer. No acute dialysis needs today however; borderline K but can wait until tomorrow * interventional radiology consulted for increased venous pressure, no abnormalities noted; appreciate assistance * UF as tolerated with HD, need caution given valvular disease and potential for decompensation * renal diet * strict i/os * renally dose meds * hemoglobin at goal for ESRD, no indication for ANDREWS Subjective Date of service: 09/07/19 Principal diagnosis: syncope, severe , Dilated RV, NSTEMI, ESRD, HTN, DM Interval history: Patient had cardiac cath this AM; feels tired after. Denies chest pain, dyspnea, edema. No recent HD issues, had HD yesterday. Wondering why only 2L UF is taken at HD. Objective - Exam Narrative Exam: General appearance: well-developed, well-nourished EENT: ATNC, PERRL Neck: supple Respiratory: Clear to Auscultation Heart: regular, S1S2 Gastrointestinal: normal, normoactive bowel sounds Integumentary: no rash Neurologic: alert and oriented x3, CN 3-12 intact Psychiatric: mood/affect appropriate - Vital Signs Vital signs: Vital Signs - 12hr 09/06/19 09/07/19 09/07/19 23:55 03:03 05:47 Temperature 98.5 F 98.3 F Pulse Rate 89 83 Respiratory 20 18 20 Rate Blood Pressure 150/72 142/65 O2 Sat by Pulse 88 93 Oximetry - Lab 09/02/19 13:43 09/07/19 07:56 Most recent lab results Calcium 9.2 mg/dL (8.4-10.2) 09/06/19 10:09 Medications & Allergies - Medications Allergies/Adverse Reactions: Allergies No Known Allergies Allergy (Unverified 01/29/19 06:33) Home Medications: Home Medications Medication Instructions Recorded Confirmed Last Taken Type Aspirin [Aspir-Low] 81 mg PO DAILY 01/29/19 09/02/19 01/27/19 History AtorvaSTATin [Lipitor] 20 mg PO QHS 01/29/19 09/02/19 01/28/19 History Clopidogrel Bisulfate [Plavix] 75 mg PO DAILY 01/29/19 09/02/19 01/27/19 History Ergocalciferol [Vitamin D2] 1 cap PO QWEEK 01/29/19 09/02/19 1 Week Ago History ~01/22/19 Famotidine [Pepcid] 10 mg PO BID 01/29/19 09/02/19 01/28/19 History Gabapentin 300 mg PO QHS 01/29/19 09/02/19 01/28/19 History Insulin Glargine,Hum.rec.anlog 20 units SQ QHS 01/29/19 09/02/19 01/28/19 History [Lantus] NIFEdipine XL [Procardia Xl] 90 mg PO DAILY 01/29/19 09/02/19 01/28/19 History Sevelamer Carbonate [Renvela] 3 tab PO TIDAC 01/29/19 09/02/19 01/28/19 History carvediloL [Carvedilol] 25 mg PO BID 01/29/19 09/02/19 01/28/19 History Triamcinolone Acetonide [Nasacort 10.8 ml NS QDAY PRN 09/02/19 09/02/19 Unknown History SPRAY] oxyCODONE /ACETAMINOPHEN [Percocet 1 tab PO Q6HR PRN 09/02/19 09/02/19 Unknown History 5/325] Active Medications: Generic Name Dose Route Start Last Admin Trade Name Freq PRN Reason Stop Dose Admin Acetaminophen 650 mg 09/02/19 14:16 09/04/19 16:20 Tylenol PO 650 mg Q4H PRN Administration Pain MILD(1-3)/Fever >100.5/BAKER Albuterol 2.5 mg 09/02/19 14:16 Proventil IH Q4HRT PRN Shortness Of Breath Aspirin 81 mg 09/03/19 10:00 09/06/19 11:29 Halfprin Ec PO Not Given DAILY EPIFANIO Atorvastatin Calcium 20 mg 09/02/19 22:00 09/06/19 23:09 Lipitor PO 20 mg QHS EPIFANIO Administration Carvedilol 25 mg 09/02/19 22:00 09/06/19 23:09 Coreg PO 25 mg BID EPIFANIO Administration Clopidogrel Bisulfate 75 mg 09/03/19 10:00 09/06/19 11:29 Plavix PO Not Given DAILY [facility] Ergocalciferol 50,000 unit 09/09/19 10:00 Vitamin D2 PO Th [facility] Famotidine 10 mg 09/02/19 22:00 09/06/19 23:07 Pepcid PO 10 mg BID EPIFANIO Administration Fluticasone Propionate 100 mcg 09/02/19 17:10 Flonase NS QDAY PRN Congestion Gabapentin 300 mg 09/02/19 22:00 09/06/19 23:09 Gabapentin PO 300 mg QHS EPIFANIO Administration Sodium Chloride 100 mls @ 999 mls/hr 09/06/19 10:20 Nacl 0.9% IV [place] PRN Hypotension Sodium Chloride 100 mls @ 999 mls/hr 09/06/19 12:14 Nacl 0.9% IV [place] PRN Hypotension Nifedipine 90 mg 09/03/19 10:00 09/06/19 11:29 Procardia Xl PO Not Given DAILY [facility] Ondansetron HCl 4 mg 09/02/19 14:16 Zofran IV Q8H PRN Nausea And Vomiting Oxycodone/Acetaminophen 1 tab 09/02/19 17:03 09/07/19 03:03 Percocet 5/325 PO 1 tab Q6HR PRN Administration PAIN Sevelamer Carbonate 2,400 mg 09/02/19 16:30 09/07/19 08:00 Renvela PO Not Given TIDAC EPIFANIO Sodium Chloride 10 ml 09/02/19 22:00 09/06/19 23:10 Sodium Chloride Flush Syringe 10 Ml IV 10 ml BID EPIFANIO Administration Sodium Chloride 10 ml 09/02/19 14:16 Sodium Chloride Flush Syringe 10 Ml IV PRN PRN LINE FLUSH
--- NOTE | 2019-09-07 12:54 | Progress Note ---
Assessment and Plan Assessment and plan: --Severe aortic stenosis: Heart Cath: normal coronaries with moderate severe aortic stenosis with normal LV function in view of recurrent syncope during dialysis for last one year recommend parviz munoz to [place] for possible aortic valve replacement. Left message with brother patient will get dialysis post cath Symptomatic syncope from aortic stenosis --Atypical chest pain/NSTEMI 2 Current Visit: Yes Status: Acute probably nonspecific in the setting of ESRD However patient has multiple risk factors s/pCath: normal coronaries --Hyperkalemia: Current Visit: Yes Status: Acute . Stat hemodialysis , follow potassium levels, HD per schedule --ESRD (end stage renal disease) Current Visit: Yes Status: Acute Nephrology following, HD per schedule -- Syncope Current Visit: Yes Status: Acute CT Head negative, neuro check, supportive care. Fall precautions, fall precautions, patient legally blind -- Dialysis disequilibrium syndrome Current Visit: Yes Status: Acute supportive care, IVF resuscitation therapy as tolerated, Supportive care --HTN (hypertension) Current Visit: Yes Status: Acute Monitor BP q shift, resume prehospital medication. supportive care. -- PVD (peripheral vascular disease) Current Visit: Yes Status: Acute supportive care. chronic, outpatient F/U with PCP --GERD (gastroesophageal reflux disease) Current Visit: Yes Status: Acute PPI therapy, --Legally blind; Supportive care -- DVT prophylaxis Current Visit: Yes Status: Acute. SCD to BLE while in bed, Transfer to [facility] Hospitalist Physical - Constitutional Vitals: Temp Pulse Resp BP Pulse Ox 97.8 F 82 20 159/78 91 09/07/19 11:30 09/07/19 11:30 09/07/19 11:30 09/07/19 11:30 09/07/19 11:30 General appearance: Present: no acute distress, well-nourished, obese Results - Labs CBC & Chem 7: 09/02/19 13:43 09/07/19 07:56 Labs: Laboratory Last Values WBC 8.8 K/mm3 (4.5-11.0) 09/02/19 13:43 RBC 3.71 M/mm3 (3.65-5.03) 09/02/19 13:43 Hgb 11.7 gm/dl (11.8-15.2) L 09/02/19 13:43 Hct 35.0 % (35.5-45.6) L 09/02/19 13:43 MCV 94 fl (84-94) 09/02/19 13:43 MCH 32 pg (28-32) 09/02/19 13:43 MCHC 34 % (32-34) 09/02/19 13:43 RDW 16.1 % (13.2-15.2) H 09/02/19 13:43 Plt Count 232 K/mm3 (140-440) 09/02/19 13:43 Lymph % (Auto) 19.1 % (13.4-35.0) 09/02/19 13:43 [place] % (Auto) 7.9 % (0.0-7.3) H 09/02/19 13:43 Eos % (Auto) 5.2 % (0.0-4.3) H 09/02/19 13:43 Baso % (Auto) 0.5 % (0.0-1.8) 09/02/19 13:43 Lymph # 1.7 K/mm3 (1.2-5.4) 09/02/19 13:43 [place] # 0.7 K/mm3 (0.0-0.8) 09/02/19 13:43 Eos # 0.5 K/mm3 (0.0-0.4) H 09/02/19 13:43 Baso # 0.0 K/mm3 (0.0-0.1) 09/02/19 13:43 Seg Neutrophils % 67.3 % (40.0-70.0) 09/02/19 13:43 Seg Neutrophils # 5.9 K/mm3 (1.8-7.7) 09/02/19 13:43 Sodium 136 mmol/L (137-145) L 09/06/19 10:09 Potassium 5.6 mmol/L (3.6-5.0) H 09/07/19 07:56 Chloride 92.0 mmol/L (98-107) L 09/06/19 10:09 Carbon Dioxide 22 mmol/L (22-30) 09/06/19 10:09 Anion Gap 28 mmol/L 09/06/19 10:09 BUN 82 mg/dL (9-20) H 09/06/19 10:09 Creatinine 9.4 mg/dL (0.8-1.5) H 09/06/19 10:09 Estimated GFR 7 ml/min 09/06/19 10:09 BUN/Creatinine Ratio 9 % 09/06/19 10:09 Glucose 152 mg/dL (75-100) H 09/06/19 10:09 POC Glucose 113 (70-105) H 09/07/19 11:31 Calcium 9.2 mg/dL (8.4-10.2) 09/06/19 10:09 Total Bilirubin 0.20 mg/dL (0.1-1.2) 09/02/19 13:43 AST < 5 units/L (5-40) L 09/02/19 13:43 ALT < 5 units/L (7-56) L 09/02/19 13:43 Alkaline Phosphatase 181 units/L (35-129) H 09/02/19 13:43 Total Creatine Kinase 269 units/L (55-170) H 09/03/19 08:46 CK-MB (CK-2) 8.3 ng/mL (0.0-4.0) H 09/03/19 08:46 CK-MB (CK-2) Rel Index 3.0 (0-4) 09/03/19 08:46 Troponin T 1.330 ng/mL (0.00-0.029) H* 09/04/19 04:51 Total Protein 9.3 g/dL (6.3-8.2) H 09/02/19 13:43 Albumin 3.0 g/dL (3.9-5) L 09/02/19 13:43 Albumin/Globulin Ratio 0.5 % 09/02/19 13:43 Triglycerides 453 mg/dL (2-149) H 09/02/19 13:43 Cholesterol 80 mg/dL (50-199) 09/02/19 13:43 LDL Cholesterol Direct TNR 09/02/19 13:43 HDL Cholesterol 30 mg/dL (40-59) L 09/02/19 13:43 Cholesterol/HDL Ratio 2.66 % 09/02/19 13:43 Hepatitis A IgM Ab Non-reactive (NonReactive) 09/03/19 22:59 Hep Bs Antigen Non-reactive (Negative) 09/03/19 22:59 Hep B Core IgM Ab Non-reactive (NonReactive) 09/03/19 22:59 Hepatitis C Antibody Non-reactive (NonReactive) 09/03/19 22:59 Active Medications - Current Medications Current Medications: Generic Name Dose Route Start Last Admin Trade Name Freq PRN Reason Stop Dose Admin Acetaminophen 650 mg 09/02/19 14:16 09/04/19 16:20 Tylenol PO 650 mg Q4H PRN Administration Pain MILD(1-3)/Fever >100.5/BAKER Albuterol 2.5 mg 09/02/19 14:16 Proventil IH Q4HRT PRN Shortness Of Breath Aspirin 81 mg 09/03/19 10:00 09/06/19 11:29 Halfprin Ec PO Not Given DAILY [facility] Atorvastatin Calcium 20 mg 09/02/19 22:00 09/06/19 23:09 Lipitor PO 20 mg QHS EPIFANIO Administration Carvedilol 25 mg 09/02/19 22:00 09/06/19 23:09 Coreg PO 25 mg BID EPIFANIO Administration Clopidogrel Bisulfate 75 mg 09/03/19 10:00 09/06/19 11:29 Plavix PO Not Given DAILY [facility] Ergocalciferol 50,000 unit 09/09/19 10:00 Vitamin D2 PO Th EPIFANIO Famotidine 10 mg 09/02/19 22:00 09/06/19 23:07 Pepcid PO 10 mg BID EPIFANIO Administration Fluticasone Propionate 100 mcg 09/02/19 17:10 Flonase NS QDAY PRN Congestion Gabapentin 300 mg 09/02/19 22:00 09/06/19 23:09 Gabapentin PO 300 mg QHS EPIFANIO Administration Sodium Chloride 100 mls @ 999 mls/hr 09/06/19 10:20 Nacl 0.9% IV [place] PRN Hypotension Sodium Chloride 100 mls @ 999 mls/hr 09/06/19 12:14 Nacl 0.9% IV [place] PRN Hypotension Nifedipine 90 mg 09/03/19 10:00 09/06/19 11:29 Procardia Xl PO Not Given DAILY [facility] Ondansetron HCl 4 mg 09/02/19 14:16 Zofran IV Q8H PRN Nausea And Vomiting Oxycodone/Acetaminophen 1 tab 09/02/19 17:03 09/07/19 03:03 Percocet 5/325 PO 1 tab Q6HR PRN Administration PAIN Sevelamer Carbonate 2,400 mg 09/02/19 16:30 09/07/19 08:00 Renvela PO Not Given TIDAC EPIFANIO Sodium Chloride 10 ml 09/02/19 22:00 09/06/19 23:10 Sodium Chloride Flush Syringe 10 Ml IV 10 ml BID EPIFANIO Administration Sodium Chloride 10 ml 09/02/19 14:16 Sodium Chloride Flush Syringe 10 Ml IV PRN PRN LINE FLUSH
--- NOTE | 2019-09-07 13:22 | Discharge Summary ---
Providers - Providers Date of Admission: 09/03/19 09:39 Date of discharge: 09/07/19 Attending physician: AYDEE MENSAH 09/02/19 20:00 Consult to Wound/ET Nurse [CONS] Routine Reason For Exam: wound eval lt. heel 09/03/19 08:21 Consult to Physician [CONS] Routine Comment: Consulting Provider: JAYSON TAMAYO Physician Instructions: Reason For Exam: ESRD on HD 09/03/19 13:46 Consult to Physician [CONS] Routine Comment: Consulting Provider: JD MURRIETA Physician Instructions: Reason For Exam: elevated troponin/chest pain/ESRD 09/05/19 12:10 Physical Therapy Evaluation and Treat [CONS] Routine Comment: Reason For Exam: weakness 09/06/19 09:31 Consult to Interventional Radiology [CONS] Routine Consulting Provider: DELMA ETIENNE Reason For Exam: poorly functioning AVF (placed at [place]) Place consult to:: Dr. Etienne Notified:: office Phone number called:: [phone] Was contact made?: Yes If yes, spoke with:: Jelena Time called:: 10:24 Comment:: poorly functioning venous port 09/07/19 10:17 Consult to Cardiac Rehabilitation [CONS] Routine Reason For Exam: Cardiac Rehab Evaluation Primary care physician: CIGAR HEAD PEGGER Hospitalization Reason for admission: syncope Condition: Stable Pertinent studies: CT head without contrast Chest x-ray Echocardiogram Cardiac cath Procedures: Heart Cath: normal coronaries with moderate severe aortic stenosis with normal LV function in view of recurrent syncope during dialysis for last one year recommend transfer to [place] for possible aortic valve replacement. Left message with brother patient will get dialysis post cath Symptomatic syncope from aortic stenosis Hospital course: --Severe aortic stenosis: Heart Cath: normal coronaries with moderate severe aortic stenosis with normal LV function in view of recurrent syncope during dialysis for last one year recommend transfer to [place] for possible aortic valve replacement. Left message with brother patient will get dialysis post cath Symptomatic syncope from aortic stenosis 44YO male resident of [facility] with a past medical history of ESRD on HD (//Fri), HTN, HLP, DM, blindness, PVD. He is previously unknown to our practice. He presented with c/o hypotension and syncopal episode noted during dialysis yesterday. He states that at that initiation of dialysis yesterday, he was noted to have elevated BPs. Several hours after dialysis, his BPs were noted to be trending downwards and he developed hypotension. He started to feel lightheadedness and then lost consciousness. He was unconscious for several seconds and EMS was called. Blood pressure systolic reported to be in the 60s per dialysis staff. I monitored and evaluated by cardiology underwent heart Reports as mentioned above Patient was evaluated by nephrology received her hemodialysis schedule Heart Revealed severe aortic stenosis, normal coronaries, cardiology recommended transfer to [facility] for further evaluation and management Final diagnosis: --Atypical chest pain/NSTEMI 2 Current Visit: Yes Status: Acute probably nonspecific in the setting of ESRD However patient has multiple risk factors s/pCath: normal coronaries --Hyperkalemia: Current Visit: Yes Status: Acute . Stat hemodialysis , follow potassium levels, HD per schedule --ESRD (end stage renal disease) Current Visit: Yes Status: Acute Nephrology following, HD per schedule -- Syncope Current Visit: Yes Status: Acute CT Head negative, neuro check, supportive care. Fall precautions, fall precautions, patient legally blind --HTN (hypertension) Current Visit: Yes Status: Acute Monitor BP q shift, resume prehospital medication. supportive care. -- PVD (peripheral vascular disease) Current Visit: Yes Status: Acute supportive care. chronic, outpatient F/U with PCP --GERD (gastroesophageal reflux disease) Current Visit: Yes Status: Acute PPI therapy, --Legally blind; Supportive care -- DVT prophylaxis Current Visit: Yes Status: Acute. SCD to BLE while in bed, Transfer to [facility] Hemodynamically stable but guarded prognosis Disposition: [id number] [facility] IP Time spent for discharge: 35 min Core Measure Documentation - Palliative Care Palliative Care/ Comfort Measures: Not Applicable - Core Measures Any of the following diagnoses?: none Exam - Constitutional Vitals: Temp Pulse Resp BP Pulse Ox 97.8 F 82 20 159/78 91 09/07/19 11:30 09/07/19 11:30 09/07/19 11:30 09/07/19 11:30 09/07/19 11:30 General appearance: Present: no acute distress, well-nourished - EENT Eyes: Present: PERRL, EOM intact - Neck Neck: Present: supple, normal ROM - Respiratory Respiratory effort: normal Respiratory: bilateral: diminished, negative: rales, rhonchi, wheezing - Cardiovascular Rhythm: regular Heart Sounds: Present: S1 & S2 - Extremities Extremities: no ischemia, No edema - Abdominal General gastrointestinal: Present: soft, non-tender, non-distended, normal bowel sounds - Integumentary Integumentary: Present: clear, warm - Musculoskeletal Musculoskeletal: strength equal bilaterally - Psychiatric Psychiatric: appropriate mood/affect, cooperative - Neurologic Neurologic: moves all extremities Plan Diet: other (cardiac diet) Additional Instructions: Patient has normal coronaries with moderate severe aortic stenosis with normal LV function in view of recurrent syncope during dialysis for last one year recommend transfer to [place] for possible aortic valve replacement. Symptomatic syncope from aortic stenosis Follow up with: PRIMARY CARE, [Primary Care Provider] - 7 Days MARCIO VILLARREAL MD [Staff Physician] - 7 Days CAROL GUTIERREZ MD [Staff Physician] - 7 Days
[2019-09-07] MEDS: CLOPIDOGREL 75 MG TAB PO SCH (14:06)
[2019-09-07] MEDS: FAMOTIDINE 10 MG TAB PO SCH (14:06)
[2019-09-07] MEDS: carvediloL 25 MG TAB PO SCH (14:06)
[2019-09-07] MEDS: NIFEdipine XL 90 MG TAB PO SCH (14:06)
[2019-09-07] MEDS: ASPIRIN EC 81 MG TAB PO SCH (14:07)
[2019-09-07 18:14] VITALS: BP 185/96
[2019-09-09] MEDS ORDERED: ERGOCALCIFEROL (VIT D2) 50,000 UNIT CAP PO SCH (10:00)
== END 2019-09-07 16:30 | disposition short-term general hospital (02) | DRG 280 ==
LOC: ED 12:27 → 3A 14:16 → OBSVTOIN 09-03 09:39
PROVIDERS: ADMIT Internal Medicine; ATTEND Internal Medicine
PROC: 5A1D70Z Performance of Urinary Filtration, Intermittent, Less than 6 Hours Per Day (ICD-10-PCS; 2019-09-04)
PROC: B51W1ZZ Fluoroscopy of Dialysis Shunt/Fistula using Low Osmolar Contrast (ICD-10-PCS; 2019-09-06)
PROC: 5A1D70Z Performance of Urinary Filtration, Intermittent, Less than 6 Hours Per Day (ICD-10-PCS; 2019-09-06)
PROC: 4A023N7 Measurement of Cardiac Sampling and Pressure, Left Heart, Percutaneous Approach (ICD-10-PCS; principal; 2019-09-07)
PROC: B2111ZZ Fluoroscopy of Multiple Coronary Arteries using Low Osmolar Contrast (ICD-10-PCS; 2019-09-07)
DX: I35.0 Nonrheumatic aortic (valve) stenosis (principal); I21.A1 Myocardial infarction type 2; N18.6 End stage renal disease; I12.0 Hypertensive chronic kidney disease with stage 5 chronic kidney disease or end stage renal disease; K21.9 Gastro-esophageal reflux disease without esophagitis; E11.22 Type 2 diabetes mellitus with diabetic chronic kidney disease; E11.51 Type 2 diabetes mellitus with diabetic peripheral angiopathy without gangrene; E11.319 Type 2 diabetes mellitus with unspecified diabetic retinopathy without macular edema; E66.9 Obesity, unspecified; H54.8 Legal blindness, as defined in USA; Z99.2 Dependence on renal dialysis; Z90.49 Acquired absence of other specified parts of digestive tract; Z79.4 Long term (current) use of insulin; Z68.32 Body mass index [BMI] 32.0-32.9, adult; Z82.49 Family history of ischemic heart disease and other diseases of the circulatory system
CPT/HCPCS: 36415; 36901; 70450; 71045; 80048; 80053; 80061; 80074; 82550; 82553; 82962; 84132; 84484; 85025; 87040; 87116; 93005; 93010; 93306; 93458; 94640; 96374; G0378; A9270-GY; C1751; C1894; J0360; J0610; J1644; J2250; J2405; J3010; J7030; J7040; Q9967